=== PATIENT | female | born 1965 | race African-American/Black ===

== ENCOUNTER 2016-07-02 13:15 | Emergency (ER) | payer SELFPAY ==
[2016-07-02 13:21] VITALS: BP 149/98; BMI 24.0
[2016-07-02 13:52] LABS: BASOPHILS % (AUTO) 0.8 % (0.2-1.0); EOSINOPHILS # (AUTO) 0.1 x10^3/uL (0.0-0.2); EOSINOPHILS % (AUTO) 1.1 % (0.9-2.9); HEMATOCRIT 38.9 % (36.0-47.0); HEMOGLOBIN 12.8 g/dL (12.0-16.0); LYMPHOCYTES # (AUTO) 1.4 X10^3/uL (1.3-2.9); MEAN CORPUSCULAR HEMOGLOBIN 30.8 pg (27.0-34.0); MEAN CORPUSCULAR HGB CONC 32.9 g/dL (33.0-35.0); MEAN CORPUSCULAR VOLUME 93.5 fL (80.0-100.0); MEAN PLATELET VOLUME 8.9 fL (7.4-11.0); MONOCYTES # (AUTO) 0.6 x10^3/uL (0.3-0.8); MONOCYTES % (AUTO) 11.5 % (0.0-13.0); NEUTROPHILS # (AUTO) 2.9 x10^3/uL (2.2-4.8); NEUTROPHILS % (AUTO) 57.6 % (42.0-75.0); PLATELET COUNT 168 X10^3/uL (150.0-450.0); RED BLOOD COUNT 4.16 X10^6/uL (3.5-5.4); RED CELL DISTRIBUTION WIDTH 13.2 % (11.6-16.5)
--- NOTE | 2016-07-02 13:59 | DR.EXTPAIN ---
HPI - Time seen Time seen: 14:00 - PCP Primary Care Physician: BECKY LONDONO - HPI Comment HPI Comment: HAVE ARTHRITIS BUT DENIES HAVING GOUT. PATIENT SAID PAIN AND SWELLING INCREASING. - Complaint/Symptoms Chief Complaint Doctor Comments: LEFT ELBOW AND LEFT FOOT SWELLING AND PAIN TIMES ONE WEEK. Chief Complaint:: PT STATES " FOR THE PAST WEEK I HAVE BEEN HURTING IN MY LEFT ARM AND ITS SWELLING AND MY LEFT FOOT HAS A KNOT OF IT ,,,,, Self Treatment fo Chief Complaint: TYLENOL - Nurses notes reviewed Nurses Notes Review: Yes - Source History Provided: Patient - Mode of arrival Mode of Arrival: Ambulatory - Timing Onset of Chief Complaint: 06/25/16 - Context History of: None - Associated signs and symptoms Associated Signs and Symptoms: Pain, Swelling PMH - PMH Past Medical History: Yes Past Medical History: Hypertension Past Surgical History: No Surgical History: Cholecystectomy - Family History History of Family Medical Conditions: Yes Family Medical History: Cancer, Hypertension - Social History Does patient currently use any type of tobacco product: Yes Have you used tobacco products in the last 12 months: Yes Type of Tobacco Use: Cigarettes How many years tobacco product used: 15 Does any household member use tobacco: No Alcohol Use: Rarely Do you use any recreational Drugs:: No Lives With: Alone Lives Where: Home - infectious screening In the last 2 months have you had wt loss of >10#?: NO Have you had fever, night sweats or hemotysis?: No Have you traveled outside the country in the last 6 months?: No Isolation: Standard ROS - Review of Systems Constitutional: No Symptoms Reported. negative: Chills, Fever Eyes: No Symptoms Reported ENTM: No Symptoms Reported Respiratoy: No Symptoms Reported Cardiovascular: No Symptoms Reported Gastrointestinal/Abdominal: No Symptoms Reported Genitourinary: No Symptoms Reported Neurological: No Symptoms Reported Musculoskeletal: No Symptoms Reported, Left, Elbow, Foot Hematologic/Lymphatic: Easy Bruising Endocrine: No Symptoms Reported All Other Systems: Reviewed and Negative PE - Vital Signs Vitals: Temperature 98.3 F Pulse Rate 76 Respiratory Rate 20 Blood Pressure [Right Arm] 164/92 Blood Pressure 149/98 O2 Sat by Pulse Oximetry 100 - General Limitations: No Limitations General Appearance: Alert - Head Head Exam: Normal Inspection - Eyes Eye exam: Normal Appearance - ENT ENT Exam: Normal External Ear Exam - Neck Neck Exam: Normal Inspection - Chest Chest Inspection: Symmetric Chest Wall Rise - Respiratory Respiratory Exam: Normal Lung Sounds Bilat Respiratory Exam: Bilateral Clear to Auscultation - Cardiovascular Cardiovascular Exam: Regular Rate, Normal Rhythm, Normal Heart Sounds - Extremities Extremities Exam: Tenderness (LATERAL LT FOOT AND LT ELBOW SWOLLEN AND TENDER.) - Skin Skin Exam: Erythema MDM - Differential Diagnosis Differential Diagnosis: Sprain, Other (ARTHRITIS) Course - Treatment Treatment: SEE ORDERS - Education/Counseling Education/Counseling: Patient, Education Educated On: Diagnosis, Needs for Follow Up ROR - Labs Reviewed Laboratory Results Reviewed?: Yes Result Diagrams: 07/02/16 13:40 Laboratory: WBC 5.0 X10^3/uL (3.6-10.0) 07/02/16 13:40 RBC 4.16 X10^6/uL (3.5-5.4) 07/02/16 13:40 Hgb 12.8 g/dL (12.0-16.0) 07/02/16 13:40 Hct 38.9 % (36.0-47.0) 07/02/16 13:40 MCV 93.5 fL (80.0-100.0) 07/02/16 13:40 MCH 30.8 pg (27.0-34.0) 07/02/16 13:40 MCHC 32.9 g/dL (33.0-35.0) L 07/02/16 13:40 RDW 13.2 % (11.6-16.5) 07/02/16 13:40 Plt Count 168 X10^3/uL (150.0-450.0) 07/02/16 13:40 MPV 8.9 fL (7.4-11.0) 07/02/16 13:40 Neut % 57.6 % (42.0-75.0) 07/02/16 13:40 Lymph % 29.0 % (21.0-51.0) 07/02/16 13:40 Ashley % 11.5 % (0.0-13.0) 07/02/16 13:40 Eos % 1.1 % (0.9-2.9) 07/02/16 13:40 Baso % 0.8 % (0.2-1.0) 07/02/16 13:40 Neut # 2.9 x10^3/uL (2.2-4.8) 07/02/16 13:40 Lymph # 1.4 X10^3/uL (1.3-2.9) 07/02/16 13:40 Ashley # 0.6 x10^3/uL (0.3-0.8) 07/02/16 13:40 Eos # 0.1 x10^3/uL (0.0-0.2) 07/02/16 13:40 Baso # 0.0 X10^3/uL (0.0-0.1) 07/02/16 13:40 Absolute Nucleated RBC 0.0 /100WBC 07/02/16 13:40 Uric Acid 5.1 mg/dL (2.6-6.0) 07/02/16 13:40 - Diagnosis Discharge Problem: Arthritis Insect bite of foot, left Qualifiers: Encounter type: initial encounter Qualified Code(s): S90.862A - Insect bite ( nonvenomous), left foot, initial encounter - Discharge Plan Disposition: HOME, SELF-CARE Condition: Stable Prescriptions: Cephalexin [Keflex Cap 500 mg] 500 mg PO TID #30 cap Ibuprofen [MOTRIN TAB 600 MG *] 600 mg PO TID PRN #20 tab PRN Reason: Pain/Inflammation Tramadol HCl 50 mg PO Q8H PRN #12 tab PRN Reason: Pain - Follow ups/Referrals Follow ups/Referrals: EDEN PENA [Primary Care Provider] - 3 days - Instructions Instructions: Arthritis, [id number], Insect Bite
== END 2016-07-02 14:10 | disposition home or self-care (01) ==
LOC: ER 13:27
DX: S90.862A Insect bite (nonvenomous), left foot, initial encounter (principal); M19.90 Unspecified osteoarthritis, unspecified site; Y33.XXXA Other specified events, undetermined intent, initial encounter; Y92.9 Unspecified place or not applicable
CPT/HCPCS: 36415; 84550; 85025; 99282

== ENCOUNTER 2016-10-04 10:29 | Emergency (ER) | payer SELFPAY ==
[2016-10-04 10:35] VITALS: BP 146/94; BMI 24.0
--- NOTE | 2016-10-04 11:26 | DR.EXTPAIN ---
HPI - Time seen Time seen: 11:22 - PCP Primary Care Physician: BECKY LONDONO - Complaint/Symptoms Chief Complaint:: PT C/O PAIN TO HER LEFT ARM AND RIGHT LEG PT DENIES ANY INJURY AND PT C/O A PULLING SENSATION AND PAIN AT NIGHT.. Self Treatment fo Chief Complaint: TYLENOL.. - Nurses notes reviewed Nurses Notes Review: Yes - Source History Provided: Patient - Mode of arrival Mode of Arrival: Ambulatory - Timing Onset of Chief Complaint: 10/02/16 - Context History of: Arthritis - Associated signs and symptoms Associated Signs and Symptoms: Pain - Other history Other History: no trauma PMH - PMH Past Medical History: Yes Past Medical History: Hypertension Past Surgical History: Yes Surgical History: Cholecystectomy - Family History History of Family Medical Conditions: Yes Family Medical History: Cancer, Hypertension - Social History Does patient currently use any type of tobacco product: Yes Have you used tobacco products in the last 12 months: Yes Type of Tobacco Use: Cigarettes How many years tobacco product used: 10 Does any household member use tobacco: No Alcohol Use: None Do you use any recreational Drugs:: No Lives With: Alone Lives Where: Home - infectious screening In the last 2 months have you had wt loss of >10#?: NO Have you had fever, night sweats or hemotysis?: Yes Have you traveled outside the country in the last 6 months?: No Isolation: Standard ROS - Review of Systems Constitutional: No Symptoms Reported Eyes: No Symptoms Reported ENTM: No Symptoms Reported Respiratoy: No Symptoms Reported Cardiovascular: No Symptoms Reported Gastrointestinal/Abdominal: No Symptoms Reported Genitourinary: No Symptoms Reported Neurological: No Symptoms Reported Musculoskeletal: Joint Pain Integumentary: No Symptoms Reported Hematologic/Lymphatic: No Symptoms Reported Endocrine: No Symptoms Reported Psychiatric: No Symptoms Reported All Other Systems: Reviewed and Negative PE - Vital Signs Vitals: Temperature 98.4 F Pulse Rate 82 Respiratory Rate 18 Blood Pressure [Right Arm] 164/92 Blood Pressure 146/94 O2 Sat by Pulse Oximetry 100 - General Limitations: No Limitations General Appearance: Alert, In No Apparent Distress - Head Head Exam: Normal Inspection - Eyes Eye exam: Normal Appearance, EOMI. negative: Scleral Icterus, Conjunctival Injection - ENT ENT Exam: Normal Exam - Neck Neck Exam: Normal Inspection, Full ROM - Chest Chest Inspection: Normal Inspection - Respiratory Respiratory Exam: Normal Lung Sounds Bilat. negative: Accessory Muscle Use, Respiratory Distress Respiratory Exam: Bilateral Clear to Auscultation - Cardiovascular Cardiovascular Exam: Regular Rate - Abdominal Exam Abdominal Exam: Normal Inspection, Normal Bowel Sounds, Soft. negative: Distention, Tenderness, Guarding - Extremities Extremities Exam: Normal Inspection, Full ROM, Tenderness - Upper Extremities Shoulder Exam: Normal Inspection, Full ROM Arm Exam: Normal Inspection Elbow Exam: Normal Inspection, Tenderness Forearm Exam: Normal Inspection, Full ROM Hand Exam: Normal Inspection, Full ROM Neuromotor Exam: Normal Exam Neurosensory Exam: Normal Exam - Lower Extremities Hip/Pelvis Exam: Normal Inspection Upper Leg Exam: Normal Inspection Knee Exam: Normal Inspection Lower Leg Exam: Normal Inspection Ankle Exam: Normal Inspection Foot/Toe Exam: Normal Inspection Neurovascular/Tendon Exam: Normal Capillary Refill Gait Exam: Observed and Normal - Back Back Exam: Normal Inspection - Diagnosis Discharge Problem: Tendonitis of elbow, left, Tendonitis of elbow, left - Discharge Plan Condition: Stable Prescriptions: Indomethacin [Indocin Cap 25 mg] 25 mg PO TID #30 cap - Follow ups/Referrals Follow ups/Referrals: EDEN PENA [Primary Care Provider] - 3 days - Instructions
== END 2016-10-04 11:35 | disposition home or self-care (01) ==
LOC: ER 10:40
DX: M77.8 Other enthesopathies, not elsewhere classified (principal)
CPT/HCPCS: 99281; 99282

== ENCOUNTER 2020-12-12 12:45 | Inpatient (IN) ==
[2020-12-12 12:59] VITALS: BMI 20.5
--- NOTE | 2020-12-12 13:25 | DR.EYE ---
HPI Time Seen Time Seen by Provider: 12/12/20 13:25 PCP Primary Care Physician: BECKY HPI Comment HPI Comment: Persistent, worsening pain in the lt eye x 1 week as below; now with pain in the roof of her mouth which won't allow her to eat or sleep; no fe jodi, chills, n/v or problems swallowing; she is taking flonase and claritin daily without relief. Complaint Chief Complaint:: PT C/O LT NICOLE SWOLLEN AND PAINFUL. NOTED SCABBED AREA OVER LT EYE ALSO. PT STATES SHE CAME TO THE ED SEVERAL DAYS AGO WITH THE EYE PROBLEM, BUT THE PHYSICIAN TOLD HER THE LT EYE WAS OKAY. SHE DID HOWEVER HAVE A STI IN HER RT EYE. PT STATES THIS MORNING WHEN SHE WOKE UP SHE NOTICED HER LIPS ARE SWOLLEN AND THE ROOF OF HER MOUTH IS RAW. COVID-19 Coronavirus risk:travel/contact w/high risk person: No Has patient experienced Coronavirus symptoms: No Source History Provided: Patient Mode of arrival Mode of Arrival: Ambulatory Timing Onset of Chief Complaint: 12/05/20 PMH PMH Past Medical History: Yes Past Medical History: Arthritis and Hypertension Past Surgical History: Yes Surgical History: Cholecystectomy Family History History of Family Medical Conditions: Yes Family Medical History: Cancer and Hypertension Social History Does any household member use tobacco: No Alcohol Use: None Do you use any recreational Drugs:: No Lives With: Family Lives Where: Home Travel Risk Coronavirus risk:travel/contact w/high risk person: No Has patient experienced Coronavirus symptoms: No Infectious screening In the last 2 months have you had wt loss of >10#?: NO Have you had fever, night sweats or hemotysis?: No Have you traveled outside the country in the last 6 months?: No Isolation: Standard ROS Review of Systems Constitutional: No Symptoms Reported Eyes: See HPI ENTM: See HPI Respiratoy: No Symptoms Reported Cardiovascular: No Symptoms Reported Gastrointestinal/Abdominal: No Symptoms Reported Genitourinary: No Symptoms Reported Neurological: No Symptoms Reported Musculoskeletal: No Symptoms Reported Hematologic/Lymphatic: No Symptoms Reported Endocrine: No Symptoms Reported Psychiatric: No Symptoms Reported PE Vital Signs Vitals: Temperature 98.0 F Pulse Rate 95 Respiratory Rate 18 Blood Pressure [Right Arm] 147/62 Blood Pressure 142/102 O2 Sat by Pulse Oximetry 97 General Limitations: No Limitations and Other (crying) General Appearance: Alert and In No Apparent Distress Head Head Exam: Normal Inspection Eyes Eye exam: Periorbital Tenderness (swelling, redness and tenderness lt orbit with 2 cm crusted area at lateral crease) Eyelids: Erythema: Left, Stye: Right and Swelling Eyelid: Left Pupils: Regular, Round: Bilateral Sclera/Conjunctival: Tenderness: Left ENT ENT Exam: Other (large ulcerated, excoriated area hard palate) Neck Neck Exam: Normal Inspection Chest Chest Inspection: Normal Inspection Respiratory Respiratory Exam: Normal Lung Sounds Bilat Cardiovascular Cardiovascular Exam: Regular Rate and Normal Rhythm Abdominal Exam Abdominal Exam: Normal Inspection, Normal Bowel Sounds and Soft Extremities Extremities Exam: Normal Inspection Back Back Exam: Normal Inspection Neurologic Neurological Exam: Alert and Oriented X3 Psychiatric Psychiatric Exam: Normal Affect and Normal Mood MDM Additional Information Additional Information Obtained From: Old Records Differential Diagnosis Differential Diagnosis: Periorbital cellulitis COURSE Treatment Treatment: pt notified of lab and ct results and need for admission Consultation Call Returned: 15:54 (Dr Warren accepts admission.) Education/Counseling Education/Counseling: Patient Educated On: Treatment and Diagnosis ROR Labs Reviewed Laboratory Results Reviewed?: Yes Result Diagrams: 12/12/20 13:52 12/12/20 13:52 Laboratory: WBC 3.2 X10^3/uL (3.6-10.0) L 12/12/20 13:52 RBC 3.94 X10^6/uL (3.5-5.4) 12/12/20 13:52 Hgb 12.7 g/dL (12.0-16.0) 12/12/20 13:52 Hct 37.2 % (36.0-47.0) 12/12/20 13:52 MCV 94.2 fL (80.0-100.0) 12/12/20 13:52 MCH 32.3 pg (27.0-34.0) 12/12/20 13:52 MCHC 34.3 g/dL (33.0-35.0) 12/12/20 13:52 RDW 12.8 % (11.6-16.5) 12/12/20 13:52 Plt Count 133 X10^3/uL (150.0-450.0) L 12/12/20 13:52 Plt Count Comment Decreased (ADEQUATE) A 12/12/20 13:52 MPV 9.4 fL (7.4-11.0) 12/12/20 13:52 Neut % (Auto) 52.7 % (42.0-75.0) 12/12/20 13:52 Lymph % (Auto) 23.0 % (21.0-51.0) 12/12/20 13:52 [place] % (Auto) 23.6 % (0.0-13.0) H 12/12/20 13:52 Eos % (Auto) 0.1 % (0.9-2.9) L 12/12/20 13:52 Baso % (Auto) 0.6 % (0.2-1.0) 12/12/20 13:52 Neut # (Auto) 1.7 x10^3/uL (2.2-4.8) L 12/12/20 13:52 Lymph # (Auto) 0.7 X10^3/uL (1.3-2.9) L 12/12/20 13:52 [place] # (Auto) 0.8 x10^3/uL (0.3-0.8) 12/12/20 13:52 Eos # (Auto) 0.0 x10^3/uL (0.0-0.2) 12/12/20 13:52 Baso # (Auto) 0.0 X10^3/uL (0.0-0.1) 12/12/20 13:52 Absolute Nucleated RBC 0.1 /100WBC 12/12/20 13:52 Total Counted 50 12/12/20 13:52 Neutrophils % (Manual) 56 % (39-76) 12/12/20 13:52 Lymphocytes % (Manual) 26 % (13-43) 12/12/20 13:52 Monocytes % (Manual) 18 % (4-9) H 12/12/20 13:52 Plt Morphology Comment Normal (NORMAL) 12/12/20 13:52 RBC Morphology Normal (NORMAL) 12/12/20 13:52 Sodium 119 mmol/L (136-145) L* 12/12/20 13:52 Corrected Sodium TNP 12/12/20 13:52 Potassium 2.9 mmol/L (3.5-5.1) L* 12/12/20 13:52 Chloride 84 mmol/L (98-107) L 12/12/20 13:52 Carbon Dioxide 27.7 mmol/L (21-32) 12/12/20 13:52 BUN 2 mg/dL (7-18) L 12/12/20 13:52 Creatinine 0.76 mg/dL (0.55-1.02) 12/12/20 13:52 Est GFR (MDRD) Af Amer > 60 (>60) 12/12/20 13:52 Est GFR (MDRD) Non-Af > 60 (>60) 12/12/20 13:52 Glucose 97 mg/dL (65-99) 12/12/20 13:52 Calcium 8.1 mg/dL (8.5-10.1) L 12/12/20 13:52 Corrected Calcium 9.1 mg/dL (8.5-10.1) 12/12/20 13:52 Total Bilirubin 0.90 mg/dL (0.2-1.0) 12/12/20 13:52 AST 71 Units/L (15-37) H 12/12/20 13:52 ALT 49 Units/L (12-78) 12/12/20 13:52 Alkaline Phosphatase 113 Units/L (46-116) 12/12/20 13:52 Total Protein 7.3 g/dL (6.4-8.2) 12/12/20 13:52 Albumin 2.8 g/dL (3.4-5.0) L 12/12/20 13:52 Globulin 4.5 g/dL (2.5-4.5) 12/12/20 13:52 Albumin/Globulin Ratio 0.6 Ratio (1.1-2.1) L 12/12/20 13:52 SARS CoV-2 RNA Rapid SHANTE Negative (NEGATIVE) 12/12/20 15:12 XRAY XRAY Interpreted by: Radiologist X-ray Results: CT facial: Mild right-sided periorbital/preseptal soft tissue edema compatible with cellulitis with no acute radiological complications of invasive orbital disease or periorbital abscess formation. Multiple dental caries. Opioid Opioid Risk Tool Age (Abran box if 16-45): No History of Preadolescent Sexual Abuse: No Total: 0 Total Score Risk Category: Low Risk Copyright: Camilo COLE predicting aberrant behaviors Diagnosis Discharge Problem: Acute hyponatremia, Acute hypokalemia, Cellulitis of left orbit Instructions Forms: [facility] Patient [place] Social Distancing
[2020-12-12] MEDS ORDERED: NORCO 5/325 MG TAB PO ONE (13:42)
[2020-12-12] MEDS ORDERED: NORCO 5/325 MG TAB ONE (13:50)
[2020-12-12 14:10] LABS: ALANINE AMINOTRANSFERASE 49 Units/L (12-78); ALBUMIN 2.8 g/dL (3.4-5.0); ALKALINE PHOSPHATASE 113 Units/L (46-116); ASPARTATE AMINO TRANSFERASE 71 Units/L (15-37); BASOPHILS % (AUTO) 0.6 % (0.2-1.0); BLOOD UREA NITROGEN 2 mg/dL (7-18); CALCIUM 8.1 mg/dL (8.5-10.1); CARBON DIOXIDE 27.7 mmol/L (21-32); CHLORIDE 84 mmol/L (98-107); COR CA(FOR HYPOALB) 9.1 mg/dL (8.5-10.1); CREATININE 0.76 mg/dL (0.55-1.02); EOSINOPHILS % (AUTO) 0.1 % (0.9-2.9); HEMATOCRIT 37.2 % (36.0-47.0); HEMOGLOBIN 12.7 g/dL (12.0-16.0); LYMPHOCYTES # (AUTO) 0.7 X10^3/uL (1.3-2.9); MEAN CORPUSCULAR HEMOGLOBIN 32.3 pg (27.0-34.0); MEAN CORPUSCULAR HGB CONC 34.3 g/dL (33.0-35.0); MEAN CORPUSCULAR VOLUME 94.2 fL (80.0-100.0); MEAN PLATELET VOLUME 9.4 fL (7.4-11.0); MONOCYTES # (AUTO) 0.8 x10^3/uL (0.3-0.8); MONOCYTES % (AUTO) 23.6 % (0.0-13.0); NEUTROPHILS # (AUTO) 1.7 x10^3/uL (2.2-4.8); NEUTROPHILS % (AUTO) 52.7 % (42.0-75.0); PLATELET COUNT 133 X10^3/uL (150.0-450.0); RED BLOOD COUNT 3.94 X10^6/uL (3.5-5.4); RED CELL DISTRIBUTION WIDTH 12.8 % (11.6-16.5); TOTAL PROTEIN 7.3 g/dL (6.4-8.2); WHITE BLOOD COUNT 3.2 X10^3/uL (3.6-10.0); eGFR NON BLACK RACES > 60 (>60)
[2020-12-12 14:11] LABS: SODIUM 119 mmol/L (136-145)
[2020-12-12] MEDS ORDERED: VANCOMYCIN IV *PREMIX 1 G/200 ML BAG 1 G/200 ML PIGGYBACK IV ONE ×2 (14:14→14:44)
[2020-12-12] MEDS ORDERED: K-DUR TAB 20 MEQ PO STA (14:14)
[2020-12-12 14:19] LABS: PLATELET MORPHOLOGY COMMENT NORMAL (NORMAL)
[2020-12-12] MEDS ORDERED: NS 100 ML IV 100 ML ONE (14:27)
[2020-12-12] MEDS ORDERED: NS 1000 ML 1,000 ML ONE (14:43)
[2020-12-12] MEDS ORDERED: K-DUR TAB 20 MEQ PO ONE (14:49)
[2020-12-12] MEDS ORDERED: NS 1000 ML 1,000 ML IV SCH (15:00)
--- NOTE | 2020-12-12 15:32 | CT ---
HISTORYRight orbital cellulitisSTUDYCT maxillofacial with IV contrastCOMPARISONNo priorsContrast enhanced maxillofacial CT is performed in the axial plane and is reconstructed with multiplanar imaging series.Radiation dose reduction was achieved through individualized adjustment of kVP and/or mA, through adaptive statistical iterative reconstruction, and/or through automated tube current modulation.FINDINGSNo attenuation abnormalities of the brain parenchyma or extra-axial fluid collections are identified within the field of view. There is no abnormal parenchymal enhancement. Bilateral globes are intact. No retro bulbar inflammatory stranding or periorbital abscess is identified. There is avid enhancement of the submandibular, parotid and lacrimal glands. No deep or superficial fluid collections of the upper neck are identified. No pathologically enlarged or morphologically atypical lymph nodes are observed. The maxillofacial bones are intact. The sinuses and mastoid air cells are well aerated and are predominantly clear. Multiple fragmented T and dental caries are identified. Degenerative changes of the cervical spine are observed at C5-6 and C6-7 where there is endplate spondylosis, uncovertebral hypertrophy and degenerative disc space narrowing.There is very mild, asymmetric preseptal edema on the right-side.IMPRESSIONMild right-sided periorbital/preseptal soft tissue edema compatible with cellulitis with no acute radiological complications of invasive orbital disease or periorbital abscess formation.Multiple dental cariesElectronically signed by: ALEXY ALEJANDRO (Dec 12, 2020 15:30:21)
[2020-12-12] MEDS ORDERED: ZOFRAN INJ 4 MG VIAL IVP PRN (15:48)
[2020-12-12] MEDS ORDERED: PHARMACY CONSULT - VANCOMYCIN XX SCH (16:00)
[2020-12-12] MEDS: K-DUR TAB 20 MEQ PO SCH ×2 (17:24→20:00)
[2020-12-12] MEDS: NS 1000 ML 1,000 ML IV SCH (17:33)
[2020-12-12] MEDS: MAGNESIUM SULFATE 1 GRAM/100 mL PREMIX 1 GM/100 ML BAG IV PRN ×4 (19:30→23:35)
[2020-12-12] MEDS: NORCO 5/325 MG TAB PO PRN (20:00)
[2020-12-13] MEDS: NS 1000 ML 1,000 ML IV SCH ×5 (00:14→18:17)
[2020-12-13] MEDS: MAGNESIUM SULFATE 1 GRAM/100 mL PREMIX 1 GM/100 ML BAG IV PRN ×2 (00:55→02:18)
[2020-12-13] MEDS: APRESOLINE INJ 20 MG VIAL IVP PRN ×2 (01:15→20:30)
[2020-12-13 06:27] LABS: EOSINOPHILS % (AUTO) 0.2 % (0.9-2.9); HEMATOCRIT 38.2 % (36.0-47.0); LYMPHOCYTES # (AUTO) 0.7 X10^3/uL (1.3-2.9); LYMPHOCYTES % (AUTO) 25.3 % (21.0-51.0); MEAN CORPUSCULAR HEMOGLOBIN 32.1 pg (27.0-34.0); MEAN CORPUSCULAR VOLUME 94.5 fL (80.0-100.0); MEAN PLATELET VOLUME 9.9 fL (7.4-11.0); MONOCYTES # (AUTO) 0.8 x10^3/uL (0.3-0.8); MONOCYTES % (AUTO) 27.2 % (0.0-13.0); NEUTROPHILS # (AUTO) 1.3 x10^3/uL (2.2-4.8); NEUTROPHILS % (AUTO) 46.3 % (42.0-75.0); PLATELET COUNT 143 X10^3/uL (150.0-450.0); RED BLOOD COUNT 4.04 X10^6/uL (3.5-5.4); RED CELL DISTRIBUTION WIDTH 13.2 % (11.6-16.5); WHITE BLOOD COUNT 2.8 X10^3/uL (3.6-10.0)
[2020-12-13 06:53] LABS: ALANINE AMINOTRANSFERASE 45 Units/L (12-78); ALBUMIN 2.6 g/dL (3.4-5.0); ALKALINE PHOSPHATASE 106 Units/L (46-116); ASPARTATE AMINO TRANSFERASE 58 Units/L (15-37); BLOOD UREA NITROGEN 2 mg/dL (7-18); CALCIUM 8.2 mg/dL (8.5-10.1); CARBON DIOXIDE 22.2 mmol/L (21-32); CHLORIDE 95 mmol/L (98-107); COR CA(FOR HYPOALB) 9.3 mg/dL (8.5-10.1); CREATININE 0.64 mg/dL (0.55-1.02); SODIUM 128 mmol/L (136-145); eGFR NON BLACK RACES > 60 (>60)
[2020-12-13 07:06] LABS: PLATELET MORPHOLOGY COMMENT NORMAL (NORMAL)
[2020-12-13] MEDS: VANCOMYCIN IV *PREMIX 750 mg/150 ML BAG 750 MG/150 ML PIGGYBACK IV SCH ×2 (09:40→20:28)
[2020-12-13] MEDS: K-DUR TAB 20 MEQ PO SCH ×2 (10:11→20:29)
--- NOTE | 2020-12-13 11:25 | DR.H&P ---
H&P - History & Physical for Day of: H&P Date: 12/12/20 - Chief Complaint Chief Complaint: FACIAL SWELLING, MOUTH PAIN - History of Present Illness History of Present Illness: IS A 55 YEAR OLD PATIENT OF . SHE PRESENTED TO THE ER WITH COMPLAINTS OF LEFT EYE SWELLING AND PAIN, SWELLING OF THE LIPS, AND SORENESS OF THE ROOF OF HER MOUTH. THERE IS A SCABBED OVER ARE NOTED TO THE LEFT EYE. PATIENT REPORTS THAT SWELLING OF THE EYE STARTED ABOUT A WEEK AGO. SWELLING OF LIPS AND MOUTH PAIN STARTED ONE DAY PRIOR. SHE DENIES FEVER, CHILLS, N/V, OR PROBLEMS SWALLOWING. SHE HAS BEEN TAKING FLONASE AND CLARITIN DAILY WITHOUT RELIEF. HER PMH INCLUDES ARTHRITIS, HTN, AND CHOLECYSTECTOMY. ON ARRIVAL, HER VITALS WERE 98.0-95-20-97%-142/100. LABS WERE OBTAINED. ABNORMAL LAB VALUES INCLUDE THE FOLLOWING: WBC 3.2, PLT COUNT 133, SODIUM 119, POTASSIUM 2.9, CHLORIDE 84, BUN 2, CALCIUM 8.1, MAGNESIUM 1.1, AST 71, ALBUMIN 2.8. BLOOD CULTURES WERE SET UP. A FACIAL BONES CT WAS OBTAINED AND REVEALED: Mild right-sided periorbital/preseptal soft tissue edema compatible with cellulitis with no acute radiological complications of invasive orbital disease or periorbital abscess formation. Multiple dental caries. IN THE ER, SHE WAS GIVEN NORCO 5/325MG X 1 DOSE, K-DUR 40MEQ PO X 1 DOSE, VANCOMYCIN 1G IV X 1 DOSE. SHE WAS ADMITTED TO THE HOSPITAL FOR FURTHER EVALUATION AND TREATMENT OF LEFT PERIORBITAL CELLULITIS AND HYPONATREMIA. SHE WAS STARTED ON NORMAL SALINE AT 100 ML/HR, VANCOMYCIN 750MG IV Q12H, ZOSYN 3.375G IV TID, SOLU-MEDROL 40MG IV Q8H, SINGULAIR 10MG PO HS, K-DUR 20MEQ PO BID, ZOFRAN 4MG IV Q8H PRN, NORCO 5/325MG PO Q6H PRN, HYDRALAZINE 10MG IV Q6H PRN, BENADRYL 25MG PO BID. WE WILL REVIEW HER HOME MEDICATIONS ONCE THEY HAVE BEEN CONFIRMED. OTHERWISE, WE PLAN TO FOLLOW UP WITH AM LABS AND CONTINUE TO MONITOR. TIME SPENT ON CLINICAL ASSESSMENT, REVIEWING LABS AND IMAGING, DECISION MAKING, AND DOCUMENTATION GREATER THAN 75 MINUTES. - Past Medical History Past Medical History: Hypertension, Arthritis - Past Surgical History Surgical History: Cholecystectomy - Family History Family Medical History: Diabetes Mellitus, Cancer, [place], Hypertension - Social History Does patient currently use any type of tobacco product: Yes Have you used tobacco products in the last 12 months: Yes Type of Tobacco Use: Cigarettes Does any household member use tobacco: Yes Alcohol Use: Occasionally Drug Use: None - Medications Home Medications: No Known Drug Allergies Allergy (Verified 09/16/20 11:24) - Review of Systems Constitutional: See HPI. denies: Fever, Chills Eyes: See HPI, Eyelid Inflammation, Redness ENT: See HPI, Mouth Pain (LARGE ULCERATED, EXCORIATED ROOF OF MOUTH ) Respiratory: No Symptoms Reported Cardiovascular: No Symptoms Reported, Edema Gastrointestinal: No Symptoms Reported Genitourinary: No Symptoms Reported Musculoskeletal: No Symptoms Reported Skin: See HPI Neurological: No Symptoms Reported - Physical Exam Vital Signs: Temperature 98.6 F Pulse Rate [Left Brachial] 78 Pulse Rate 95 Respiratory Rate 20 Blood Pressure [Left Arm] 148/87 Blood Pressure [Right Arm] 177/110 Blood Pressure 142/102 O2 Sat by Pulse Oximetry 100 Oriented: Normal Eyes: Redness (PERIORBITAL TENDERNESS, SWELLING OF LEFT EYE WITH SCAB AT CREASE) Ear: Normal Nose: Normal Throat: Red (ULCERATIONS TO ROOF OF MOUTH ) Respiratory: Diminished Throughout Cardiovascular: Normal : Normal Auscultation: Bowel Sounds: Normal Palpation: Normal Tenderness: Normal Skin: Normal Musculoskeletal: Normal Psychiatric: Normal Mood Description: Calm Affect: Normal Speech Pattern: Clear - Assessment/Plan (1) Cellulitis of left orbit Status: Acute Plan: ADMIT, NORMAL SALINE AT 100 ML/HR, VANCOMYCIN 750MG IV Q12H, ZOSYN 3.375G IV TID, SOLU-MEDROL 40MG IV Q8H, SINGULAIR 10MG PO HS, K-DUR 20MEQ PO BID, ZOFRAN 4MG IV Q8H PRN, NORCO 5/325MG PO Q6H PRN, HYDRALAZINE 10MG IV Q6H PRN, BENADRYL 25MG PO BID. (2) Acute hypokalemia Status: Acute (3) Acute hyponatremia Status: Acute - Allergies Allergies/Adverse Reactions: Allergies Allergy/AdvReac Type Severity Reaction Status Date / Time No Known Drug Allergies Allergy Verified 09/16/20 11:24
[2020-12-13] MEDS ORDERED: ZOSYN VIAL 3.375 GRAMS IV ONE (12:40)
[2020-12-13] MEDS: ZOSYN VIAL 3.375 GRAMS 3.375 G in NS 50 ML IV + SPIKE MINIBAG* 50 ML IV SCH ×3 (12:49→21:17)
[2020-12-13] MEDS: SOLU-Medrol 40 MG VIAL IVP SCH ×3 (12:49→21:17)
[2020-12-13] MEDS: BENADRYL CAP/TAB 25 MG PO SCH ×2 (12:49→20:29)
[2020-12-13] MEDS ORDERED: NYSTATIN SUSP ONE (17:52)
[2020-12-13] MEDS ORDERED: LEVSIN/MAALOX/LIDOC VISC ONE (17:52)
[2020-12-13] MEDS: MAGIC MOUTHWASH MT PRN ×2 (18:05→23:00)
[2020-12-13] MEDS: NYSTATIN SUSP PO SCH ×2 (18:05→20:28)
[2020-12-13] MEDS ORDERED: TOPROL XL PO ONE (18:24)
[2020-12-13] MEDS: TOPROL XL PO SCH (18:27)
[2020-12-13] MEDS: SINGULAIR TAB 10 MG PO SCH (20:30)
[2020-12-14] MEDS: NS 1000 ML 1,000 ML IV SCH ×3 (01:37→15:08)
[2020-12-14] MEDS: APRESOLINE INJ 20 MG VIAL IVP PRN ×2 (04:38→12:33)
[2020-12-14] MEDS: SOLU-Medrol 40 MG VIAL IVP SCH (05:13)
[2020-12-14] MEDS: ZOSYN VIAL 3.375 GRAMS 3.375 G in NS 50 ML IV + SPIKE MINIBAG* 50 ML IV SCH ×3 (05:14→21:25)
[2020-12-14 06:30] LABS: BASOPHILS % (AUTO) 0.3 % (0.2-1.0); HEMATOCRIT 33.7 % (36.0-47.0); HEMOGLOBIN 11.4 g/dL (12.0-16.0); LYMPHOCYTES # (AUTO) 0.5 X10^3/uL (1.3-2.9); MEAN CORPUSCULAR HEMOGLOBIN 32.4 pg (27.0-34.0); MEAN CORPUSCULAR HGB CONC 33.7 g/dL (33.0-35.0); MEAN PLATELET VOLUME 10.1 fL (7.4-11.0); MONOCYTES # (AUTO) 0.3 x10^3/uL (0.3-0.8); NEUTROPHILS # (AUTO) 1.9 x10^3/uL (2.2-4.8); NEUTROPHILS % (AUTO) 70.7 % (42.0-75.0); PLATELET COUNT 137 X10^3/uL (150.0-450.0); RED BLOOD COUNT 3.51 X10^6/uL (3.5-5.4); RED CELL DISTRIBUTION WIDTH 13.2 % (11.6-16.5); WHITE BLOOD COUNT 2.6 X10^3/uL (3.6-10.0)
[2020-12-14 06:39] LABS: ALANINE AMINOTRANSFERASE 34 Units/L (12-78); ALBUMIN 2.4 g/dL (3.4-5.0); ALKALINE PHOSPHATASE 90 Units/L (46-116); ASPARTATE AMINO TRANSFERASE 31 Units/L (15-37); BLOOD UREA NITROGEN 3 mg/dL (7-18); CALCIUM 8.2 mg/dL (8.5-10.1); CARBON DIOXIDE 18.9 mmol/L (21-32); CHLORIDE 96 mmol/L (98-107); COR CA(FOR HYPOALB) 9.5 mg/dL (8.5-10.1); COR NA(FOR HYPERGLY) 130 mmol/L (136-145); CREATININE 0.88 mg/dL (0.55-1.02); MAGNESIUM 1.6 mg/dL (1.7-2.9); SODIUM 128 mmol/L (136-145); TOTAL PROTEIN 6.5 g/dL (6.4-8.2); eGFR NON BLACK RACES > 60 (>60)
[2020-12-14 07:05] LABS: GIANT PLATELET RARE; PLATELET MORPHOLOGY COMMENT ABNORMAL (NORMAL)
[2020-12-14] MEDS: NORCO 5/325 MG TAB PO PRN (07:38)
[2020-12-14] MEDS ORDERED: TOPROL XL PO ONE (08:20)
[2020-12-14] MEDS: MAGNESIUM SULFATE 1 GRAM/100 mL PREMIX 4 G/400 ML BAG IV SCH ×4 (08:26→12:33)
[2020-12-14] MEDS: TOPROL XL PO SCH (08:27)
[2020-12-14] MEDS: K-DUR TAB 20 MEQ PO SCH ×2 (08:28→21:25)
[2020-12-14] MEDS: VANCOMYCIN IV *PREMIX 750 mg/150 ML BAG 750 MG/150 ML PIGGYBACK IV SCH ×2 (08:28→22:15)
[2020-12-14] MEDS: PREDNISONE TAB 20 MG PO SCH (08:28)
[2020-12-14] MEDS: NYSTATIN SUSP PO SCH ×4 (08:28→21:25)
[2020-12-14] MEDS: BENADRYL CAP/TAB 25 MG PO SCH ×2 (08:28→21:25)
[2020-12-14] MEDS: MAGNESIUM SULFATE 1 GRAM/100 mL PREMIX 1 GM/100 ML BAG IV PRN ×2 (12:33→18:01)
[2020-12-14 20:38] LABS: CREATININE 0.79 mg/dL (0.55-1.02); VANCOMYCIN,TROUGH 12.3 ug/mL (15-20)
[2020-12-14] MEDS: SINGULAIR TAB 10 MG PO SCH (21:25)
[2020-12-15] MEDS: NS 1000 ML 1,000 ML IV SCH ×6 (00:15→18:29)
[2020-12-15] MEDS: NORCO 5/325 MG TAB PO PRN (05:20)
[2020-12-15] MEDS: ZOSYN VIAL 3.375 GRAMS 3.375 G in NS 50 ML IV + SPIKE MINIBAG* 50 ML IV SCH ×3 (05:44→22:20)
[2020-12-15 06:38] LABS: BASOPHILS % (AUTO) 0.3 % (0.2-1.0); HEMOGLOBIN 11.3 g/dL (12.0-16.0); LYMPHOCYTES # (AUTO) 1.1 X10^3/uL (1.3-2.9); LYMPHOCYTES % (AUTO) 18.3 % (21.0-51.0); MEAN CORPUSCULAR HEMOGLOBIN 32.4 pg (27.0-34.0); MEAN CORPUSCULAR HGB CONC 33.4 g/dL (33.0-35.0); MEAN PLATELET VOLUME 9.7 fL (7.4-11.0); MONOCYTES # (AUTO) 0.8 x10^3/uL (0.3-0.8); MONOCYTES % (AUTO) 14.3 % (0.0-13.0); NEUTROPHILS # (AUTO) 3.9 x10^3/uL (2.2-4.8); NEUTROPHILS % (AUTO) 67.1 % (42.0-75.0); PLATELET COUNT 134 X10^3/uL (150.0-450.0); RED BLOOD COUNT 3.51 X10^6/uL (3.5-5.4); RED CELL DISTRIBUTION WIDTH 13.2 % (11.6-16.5); WHITE BLOOD COUNT 5.8 X10^3/uL (3.6-10.0)
[2020-12-15 06:55] LABS: ALANINE AMINOTRANSFERASE 30 Units/L (12-78); ALBUMIN 2.5 g/dL (3.4-5.0); ALKALINE PHOSPHATASE 78 Units/L (46-116); ASPARTATE AMINO TRANSFERASE 29 Units/L (15-37); BLOOD UREA NITROGEN 4 mg/dL (7-18); CALCIUM 8.3 mg/dL (8.5-10.1); CARBON DIOXIDE 22.3 mmol/L (21-32); CHLORIDE 97 mmol/L (98-107); COR CA(FOR HYPOALB) 9.5 mg/dL (8.5-10.1); CREATININE 0.75 mg/dL (0.55-1.02); MAGNESIUM 1.8 mg/dL (1.7-2.9); SODIUM 129 mmol/L (136-145); TOTAL PROTEIN 6.6 g/dL (6.4-8.2); eGFR NON BLACK RACES > 60 (>60)
[2020-12-15] MEDS ORDERED: TOPROL XL PO ONE (08:08)
[2020-12-15] MEDS: PREDNISONE TAB 20 MG PO SCH (08:24)
[2020-12-15] MEDS: BENADRYL CAP/TAB 25 MG PO SCH ×2 (08:24→21:09)
[2020-12-15] MEDS: NYSTATIN SUSP PO SCH ×4 (08:24→21:10)
[2020-12-15] MEDS: K-DUR TAB 20 MEQ PO SCH ×2 (08:24→21:09)
[2020-12-15] MEDS: TOPROL XL PO SCH (08:24)
[2020-12-15] MEDS: VANCOMYCIN IV *PREMIX 750 mg/150 ML BAG 750 MG/150 ML PIGGYBACK IV SCH ×2 (08:25→21:10)
[2020-12-15] MEDS: APRESOLINE INJ 20 MG VIAL IVP PRN ×2 (08:25→17:16)
[2020-12-15] MEDS ORDERED: COZAAR PO SCH (10:00)
[2020-12-15] MEDS: ZESTRIL TAB 40 MG PO SCH (12:02)
[2020-12-15] MEDS: MAGNESIUM SULFATE 1 GRAM/100 mL PREMIX 1 GM/100 ML BAG IV PRN ×2 (15:08→17:16)
[2020-12-15] MEDS: SINGULAIR TAB 10 MG PO SCH (21:10)
[2020-12-16] MEDS: NS 1000 ML 1,000 ML IV SCH ×2 (02:24→07:52)
[2020-12-16] MEDS: NORCO 5/325 MG TAB PO PRN (02:25)
[2020-12-16] MEDS: MAGIC MOUTHWASH MT PRN (02:35)
[2020-12-16] MEDS: ZOSYN VIAL 3.375 GRAMS 3.375 G in NS 50 ML IV + SPIKE MINIBAG* 50 ML IV SCH (05:03)
[2020-12-16 06:37] LABS: BASOPHILS % (AUTO) 0.3 % (0.2-1.0); HEMATOCRIT 34.2 % (36.0-47.0); HEMOGLOBIN 11.6 g/dL (12.0-16.0); LYMPHOCYTES # (AUTO) 1.3 X10^3/uL (1.3-2.9); LYMPHOCYTES % (AUTO) 22.8 % (21.0-51.0); MEAN CORPUSCULAR HEMOGLOBIN 32.3 pg (27.0-34.0); MEAN CORPUSCULAR HGB CONC 33.9 g/dL (33.0-35.0); MEAN CORPUSCULAR VOLUME 95.2 fL (80.0-100.0); MEAN PLATELET VOLUME 9.5 fL (7.4-11.0); MONOCYTES # (AUTO) 1.1 x10^3/uL (0.3-0.8); MONOCYTES % (AUTO) 18.5 % (0.0-13.0); NEUTROPHILS # (AUTO) 3.4 x10^3/uL (2.2-4.8); NEUTROPHILS % (AUTO) 58.4 % (42.0-75.0); PLATELET COUNT 141 X10^3/uL (150.0-450.0); RED BLOOD COUNT 3.59 X10^6/uL (3.5-5.4); RED CELL DISTRIBUTION WIDTH 12.9 % (11.6-16.5); WHITE BLOOD COUNT 5.8 X10^3/uL (3.6-10.0)
[2020-12-16 07:01] LABS: ALANINE AMINOTRANSFERASE 32 Units/L (12-78); ALBUMIN 2.5 g/dL (3.4-5.0); ALKALINE PHOSPHATASE 73 Units/L (46-116); ASPARTATE AMINO TRANSFERASE 30 Units/L (15-37); BLOOD UREA NITROGEN 7 mg/dL (7-18); CALCIUM 8.5 mg/dL (8.5-10.1); CARBON DIOXIDE 23.8 mmol/L (21-32); CHLORIDE 97 mmol/L (98-107); COR CA(FOR HYPOALB) 9.7 mg/dL (8.5-10.1); CREATININE 0.81 mg/dL (0.55-1.02); SODIUM 128 mmol/L (136-145); TOTAL PROTEIN 6.5 g/dL (6.4-8.2); eGFR NON BLACK RACES > 60 (>60)
[2020-12-16 07:52] VITALS: BP 198/95
[2020-12-16] MEDS ORDERED: TOPROL XL PO ONE (08:18)
[2020-12-16] MEDS: NYSTATIN SUSP PO SCH (08:27)
[2020-12-16] MEDS: BENADRYL CAP/TAB 25 MG PO SCH (08:27)
[2020-12-16] MEDS: TOPROL XL PO SCH (08:27)
[2020-12-16] MEDS: ZESTRIL TAB 40 MG PO SCH (08:28)
[2020-12-16] MEDS: VANCOMYCIN IV *PREMIX 750 mg/150 ML BAG 750 MG/150 ML PIGGYBACK IV SCH (08:28)
[2020-12-16] MEDS: PREDNISONE TAB 20 MG PO SCH (08:28)
[2020-12-16] MEDS: K-DUR TAB 20 MEQ PO SCH (08:28)
== END 2020-12-16 11:00 | disposition home or self-care (01) | DRG 603 ==
LOC: ER 12:55 → MED/SURG 15:47
PROVIDERS: ADMIT Internal Medicine; ATTEND Obstetrics & Gynecology Obstetrics
DX: E87.6 Hypokalemia; E87.1 Hypo-osmolality and hyponatremia; B08.4 Enteroviral vesicular stomatitis with exanthem; L03.213 Periorbital cellulitis; E83.42 Hypomagnesemia; I10 Essential (primary) hypertension; Z20.822 Contact with and (suspected) exposure to COVID-19

== ENCOUNTER 2021-02-04 10:34 | Inpatient (IN) ==
[2021-02-04 10:42] VITALS: BMI 20.5
[2021-02-04] MEDS ORDERED: NORCO 5/325 MG TAB PO ONE (11:03)
--- NOTE | 2021-02-04 11:03 | DR.EXTPAIN ---
HPI Time seen Time Seen by Provider: 02/04/21 11:01 PCP Primary Care Physician: BECKY HPI Comment HPI Comment: PATIENT WITH A HISTORY OF HYPERTENSION, OSTEOARTHRITIS, RAYNAUDS DISEASE, COMPLAINS OF PAIN, BLACK DISCOLORATION TO TIP OF LEFT MIDDLE FINGER FOR 1 MONTH. HAS NO RELIEF WHILE TAKING TORADOL. EVALUATED BY NEUROLOGIST YESTERDAY. DENIES FEVER, DRAINAGE FROM FINGER. Complaint/Symptoms Chief Complaint Doctor Comments: LEFT MIDDLE FINGER TIP PAIN Chief Complaint:: LEFT MIDDLE FINGER SORE/SWOLLEN, BLACK AREA AT FINGER TIP X 2 WEEKS, UNKNOWN INJURY Self Treatment fo Chief Complaint: "SHOT AT DR YESTERDAY" COVID-19 Coronavirus risk:travel/contact w/high risk person: No Has patient experienced Coronavirus symptoms: No Source History Provided: Patient Mode of arrival Mode of Arrival: Wheelchair Timing Onset of Chief Complaint: 01/21/21 Associated signs and symptoms Associated Signs and Symptoms: Pain PMH PMH Past Medical History: Yes Past Medical History: Arthritis and Hypertension Past Surgical History: Yes Surgical History: Cholecystectomy Family History History of Family Medical Conditions: No Family Medical History: Diabetes Mellitus and Hypertension Social History Alcohol Use: Occasionally Do you use any recreational Drugs:: No Travel Risk Coronavirus risk:travel/contact w/high risk person: No Has patient experienced Coronavirus symptoms: No Infectious screening Have you traveled outside the country in the last 6 months?: No Isolation: Standard ROS Review of Systems Constitutional: No Symptoms Reported Eyes: No Symptoms Reported ENTM: No Symptoms Reported Respiratoy: No Symptoms Reported Cardiovascular: No Symptoms Reported Gastrointestinal/Abdominal: No Symptoms Reported Genitourinary: No Symptoms Reported Neurological: No Symptoms Reported Musculoskeletal: Hand (PAIN, DISCOLORATION TO TIP OF LEFT MIDDLE FINGER) Integumentary: No Symptoms Reported Hematologic/Lymphatic: No Symptoms Reported Endocrine: No Symptoms Reported Psychiatric: No Symptoms Reported All Other Systems: Reviewed and Negative PE Vital Signs Vitals: Temperature 98.6 F Pulse Rate [Radial] 83 Pulse Rate 83 Respiratory Rate 18 Blood Pressure [Left Arm] 163/108 Blood Pressure [Right Arm] 177/110 Blood Pressure 137/91 O2 Sat by Pulse Oximetry 100 General General Appearance: In Distress (IN PAIN, MILD TO MODERATE DISTRESS) Head Head Exam: Normal Inspection and Atraumatic Eyes Eye exam: Normal Appearance, PERRL and EOMI ENT ENT Exam: Normal Exam Neck Neck Exam: Normal Inspection and Full ROM Chest Chest Inspection: Normal Inspection Respiratory Respiratory Exam: Normal Lung Sounds Bilat Respiratory Exam: Bilateral: Clear to Auscultation Cardiovascular Cardiovascular Exam: Regular Rate and Normal Rhythm Abdominal Exam Abdominal Exam: Normal Inspection and Normal Bowel Sounds Extremities Extremities Exam: Tenderness (LEFT MIDDLE FINGER, MID DISTAL PHALANGX TO TIP, BLACK DISCOLARATION DRY GANGRENE, MARKED TENDERNESS, FULL RANGE OF MOTION MCP PIP AND DIP JOINT, NO OPEN WOUNDS OR DRAINAGE) Upper Extremities Upper Ext. Vascular Exam: Radial Pulse (2+) Back Back Exam: Normal Inspection and Full ROM Neurological Neurological Exam: Oriented X3 and CN II-XII Intact Psychiatric Psychiatric Exam: Normal Affect and Normal Mood Skin Skin Exam: Warm MDM Differential Diagnosis Differential Diagnosis: Other (DRY GANGRENE LEFT MIDDLE FINGER TIP, DEHYDRATION, HYPONATREMIA, HYPOKALEMIA) COURSE Treatment Treatment: NORCO 5/325, 1 TAB ORALLY, IV NORMAL SALINE 1 LITER AT 250ML/HR, ZOFRAN 4MG IV, K-MARIAJOSE 10MEQ IVBP OVER 1 HOUR Reevaluation 1st: Unchanged Consultation Call Returned: 13:40 Consultation Comments: DISCUSSED WITH DR PENA FOR INPATIENT ADMIT ROR Labs Reviewed Laboratory Results Reviewed?: Yes Result Diagrams: 02/04/21 11:17 02/04/21 12:02 Laboratory: WBC 4.7 X10^3/uL (3.6-10.0) 02/04/21 11:17 RBC 4.52 X10^6/uL (3.5-5.4) 02/04/21 11:17 Hgb 14.6 g/dL (12.0-16.0) 02/04/21 11:17 Hct 41.1 % (36.0-47.0) 02/04/21 11:17 MCV 91.1 fL (80.0-100.0) 02/04/21 11:17 MCH 32.3 pg (27.0-34.0) 02/04/21 11:17 MCHC 35.4 g/dL (33.0-35.0) H 02/04/21 11:17 RDW 12.0 % (11.6-16.5) 02/04/21 11:17 Plt Count 172 X10^3/uL (150.0-450.0) 02/04/21 11:17 Plt Count Comment Adequate (ADEQUATE) 02/04/21 11:17 MPV 8.9 fL (7.4-11.0) 02/04/21 11:17 Neut % (Auto) 63.0 % (42.0-75.0) 02/04/21 11:17 Lymph % (Auto) 9.7 % (21.0-51.0) L 02/04/21 11:17 [place] % (Auto) 26.7 % (0.0-13.0) H 02/04/21 11:17 Eos % (Auto) 0.1 % (0.9-2.9) L 02/04/21 11:17 Baso % (Auto) 0.5 % (0.2-1.0) 02/04/21 11:17 Neut # (Auto) 2.9 x10^3/uL (2.2-4.8) 02/04/21 11:17 Lymph # (Auto) 0.5 X10^3/uL (1.3-2.9) L 02/04/21 11:17 [place] # (Auto) 1.2 x10^3/uL (0.3-0.8) H 02/04/21 11:17 Eos # (Auto) 0.0 x10^3/uL (0.0-0.2) 02/04/21 11:17 Baso # (Auto) 0.0 X10^3/uL (0.0-0.1) 02/04/21 11:17 Absolute Nucleated RBC 0.2 /100WBC 02/04/21 11:17 Total Counted 100 02/04/21 11:17 Neutrophils % (Manual) 71 % (39-76) 02/04/21 11:17 Lymphocytes % (Manual) 9 % (13-43) L 02/04/21 11:17 Monocytes % (Manual) 20 % (4-9) H 02/04/21 11:17 Plt Morphology Comment Normal (NORMAL) 02/04/21 11:17 RBC Morphology Normal (NORMAL) 02/04/21 11:17 Sodium 109 mmol/L (136-145) L* 02/04/21 12:02 Corrected Sodium TNP 02/04/21 12:02 Potassium 2.8 mmol/L (3.5-5.1) L* 02/04/21 12:02 Chloride 75 mmol/L (98-107) L* 02/04/21 12:02 Carbon Dioxide 28.0 mmol/L (21-32) 02/04/21 12:02 BUN 6 mg/dL (7-18) L 02/04/21 12:02 Creatinine 0.59 mg/dL (0.55-1.02) 02/04/21 12:02 Est GFR (MDRD) Af Amer > 60 (>60) 02/04/21 12:02 Est GFR (MDRD) Non-Af > 60 (>60) 02/04/21 12:02 Glucose 107 mg/dL (65-99) H 02/04/21 12:02 Lactic Acid 0.5 mmol/L (0.4-2.0) 02/04/21 12:02 Calcium 8.6 mg/dL (8.5-10.1) 02/04/21 12:02 Magnesium 1.6 mg/dL (1.7-2.9) L 02/04/21 12:02 Ethyl Alcohol mg/dL < 3 mg/dL (0-19.9) 02/04/21 12:02 SARS-CoV-2 (PCR) Negative (NEGATIVE) 02/04/21 12:29 XRAY XRAY Interpreted by: Radiologist (PORTABLE CHEST XRAY NO ACUTE PROCESS) EKG Rate: 70 [place]: Normal Rhythm: NSR (PROLONGED QT INTERVAL) Hypertrophy: LAE Opioid Opioid Risk Tool Age (Abran box if 16-45): No History of Preadolescent Sexual Abuse: No Total: 0 Total Score Risk Category: Low Risk Copyright: Camilo COLE predicting aberrant behaviors Diagnosis Discharge Problem: Electrolyte imbalance, Acute hyponatremia, Acute hypokalemia
[2021-02-04] MEDS ORDERED: NORCO 5/325 MG TAB ONE (11:06)
[2021-02-04 11:36] LABS: BASOPHILS % (AUTO) 0.5 % (0.2-1.0); EOSINOPHILS % (AUTO) 0.1 % (0.9-2.9); HEMATOCRIT 41.1 % (36.0-47.0); HEMOGLOBIN 14.6 g/dL (12.0-16.0); LYMPHOCYTES # (AUTO) 0.5 X10^3/uL (1.3-2.9); LYMPHOCYTES % (AUTO) 9.7 % (21.0-51.0); MEAN CORPUSCULAR HEMOGLOBIN 32.3 pg (27.0-34.0); MEAN CORPUSCULAR HGB CONC 35.4 g/dL (33.0-35.0); MEAN CORPUSCULAR VOLUME 91.1 fL (80.0-100.0); MEAN PLATELET VOLUME 8.9 fL (7.4-11.0); MONOCYTES # (AUTO) 1.2 x10^3/uL (0.3-0.8); MONOCYTES % (AUTO) 26.7 % (0.0-13.0); NEUTROPHILS # (AUTO) 2.9 x10^3/uL (2.2-4.8); PLATELET COUNT 172 X10^3/uL (150.0-450.0); RED BLOOD COUNT 4.52 X10^6/uL (3.5-5.4); WHITE BLOOD COUNT 4.7 X10^3/uL (3.6-10.0)
[2021-02-04 11:50] LABS: BLOOD UREA NITROGEN 6 mg/dL (7-18); eGFR NON BLACK RACES > 60 (>60)
[2021-02-04 12:16] LABS: CALCIUM 8.6 mg/dL (8.5-10.1); CREATININE 0.59 mg/dL (0.55-1.02)
[2021-02-04 12:19] LABS: CHLORIDE 75 mmol/L (98-107); SODIUM 109 mmol/L (136-145)
[2021-02-04 12:23] LABS: PLATELET MORPHOLOGY COMMENT NORMAL (NORMAL)
[2021-02-04] MEDS ORDERED: K-RIDER 10 MEQ/NS 100 ML 10 MEQ/100 ML BAG IV ONE ×2 (12:28→12:38)
[2021-02-04] MEDS ORDERED: NS 1,000 ML IV 1,000 ML IV STA (12:28)
[2021-02-04] MEDS ORDERED: ZOFRAN INJ 4 MG VIAL ONE (12:37)
[2021-02-04] MEDS ORDERED: NS 1,000 ML IV 1,000 ML ONE (12:38)
[2021-02-04 12:45] LABS: BLOOD ALCOHOL < 3 mg/dL (0-19.9); MAGNESIUM 1.6 mg/dL (1.7-2.9)
[2021-02-04] MEDS: ZOFRAN INJ 4 MG VIAL IVP ONE ×2 (13:07→13:09)
[2021-02-04 13:08] LABS: LACTIC ACID 0.5 mmol/L (0.4-2.0)
--- NOTE | 2021-02-04 13:16 | RAD ---
HISTORYGANGRENE TIP OF LEFT MIDDLE FINGER Relevant Clinical InformationSTUDYHAND, LEFT three viewsCOMPARISONNoneFINDINGSNo evidence of acute fractures, there is edema of the 3rd and 4th finger, s no evidence of air to suggest an anaerobic infection. There is hyper trophic changes in the 2nd 3rd and 4 distal interphalangeal joints. The carpal bones demonstrate no abnormalities. No radiopaque foreign bodies.IMPRESSIONNo acute fractures. No air in the soft tissues.Electronically signed by: Grisel Barton (Feb 04, 2021 13:15:03)
[2021-02-04] MEDS ORDERED: K-RIDER 10 MEQ/NS 100 ML 10 MEQ/100 ML BAG IV PRN ×2 (14:08→19:20)
[2021-02-04] MEDS ORDERED: ZOFRAN INJ 4 MG VIAL IVP PRN (14:08)
[2021-02-04] MEDS ORDERED: BACITRACIN ZINC ONE (14:11)
[2021-02-04] MEDS: BACTROBAN TOPICAL OINT TOP SCH ×2 (14:17→21:31)
--- NOTE | 2021-02-04 14:39 | RAD ---
HISTORYCOUGHSTUDYCHEST, 1 VIEWCOMPARISONFebruary 2020TECHNIQUEChest x-ray single viewFINDINGSHeart size and mediastinal contours are normal. Lungs are clear as are the pleural spaces. No free air or pneumothorax. No acute bony abonormality.IMPRESSIONNo acute radiographic abnormalities of the chestElectronically signed by: ALEXY ALEJANDRO (Feb 04, 2021 14:37:53)
[2021-02-04] MEDS: NS 1,000 ML IV 1,000 ML IV SCH ×2 (14:51→21:32)
[2021-02-04 16:12] LABS: BILIRUBIN,URINE NEGATIVE (NEGATIVE); BLOOD/HEMOGLOBIN,URINE 1+ (NEGATIVE); GLUCOSE, URINE NEGATIVE (NEGATIVE); KETONES,URINE NEGATIVE (NEGATIVE); LEUKOCYTE ESTERASE ,URINE 3+ (NEGATIVE); NITRITES,URINE NEGATIVE (NEGATIVE); PROTEIN,URINE 1+ (NEGATIVE); UROBILINOGEN,URINE 1+ (NORMAL)
[2021-02-04 16:23] LABS: APPEARANCE,URINE SLIGHTLY HAZY (CLEAR); COLOR,URINE YELLOW (YELLOW); SQUAMOUS EPITHELIAL CELL,UR MODERATE /HPF (NEGATIVE)
[2021-02-04 16:24] LABS: BACTERIA,URINE TRACE /HPF (NEGATIVE); TRICHOMONAS,URINE MANY /HPF (NEGATIVE)
[2021-02-04] MEDS ORDERED: MICRO K EXTEN CAP 10 MEQ PO PRN (19:20)
[2021-02-04] MEDS ORDERED: POTASSIUM CHLORIDE LIQ 20 MEQ UDC PO PRN (19:20)
[2021-02-04] MEDS ORDERED: POTASSIUM CHL 60 MEQ/NS 0.45% 500 ML IV PRN (19:20)
[2021-02-04] MEDS ORDERED: POTASSIUM CHL 40 MEQ/NS 0.45% 500 ML IV PRN (19:20)
[2021-02-04] MEDS: MAGNESIUM SULFATE 1 GRAM/100 mL PREMIX 1 G/100 ML BAG IV PRN ×2 (19:53→21:40)
[2021-02-04] MEDS: KLOR-CON PO PRN (19:53)
[2021-02-05] MEDS: BACTROBAN TOPICAL OINT TOP SCH ×3 (06:03→21:13)
[2021-02-05] MEDS: NS 1,000 ML IV 1,000 ML IV SCH ×3 (06:04→21:13)
[2021-02-05 06:40] LABS: BLOOD UREA NITROGEN 5 mg/dL (7-18); CALCIUM 8.4 mg/dL (8.5-10.1); CARBON DIOXIDE 23.3 mmol/L (21-32); CHLORIDE 86 mmol/L (98-107); MAGNESIUM 2.4 mg/dL (1.7-2.9); eGFR NON BLACK RACES > 60 (>60)
[2021-02-05 06:43] LABS: SODIUM 117 mmol/L (136-145)
[2021-02-05] MEDS ORDERED: TOPROL XL PO ONE (08:02)
[2021-02-05] MEDS: NORVASC TAB 10 MG PO SCH (08:04)
[2021-02-05] MEDS: TOPROL XL PO SCH (08:05)
[2021-02-05] MEDS: ULTRAM PO PRN (08:05)
[2021-02-05] MEDS ORDERED: ZESTRIL TAB 40 MG PO SCH (09:00)
[2021-02-05] MEDS: K-DUR TAB 20 MEQ PO PRN (09:29)
[2021-02-05] MEDS: COZAAR PO SCH (09:29)
[2021-02-05] MEDS: DUKE'S Magic Mouthwash (nyst/dex/ben/doxyc) MT PRN (11:21)
[2021-02-05 11:24] LABS: RHEUMATOID FACTOR NEGATIVE (NEGATIVE)
[2021-02-06] MEDS: NS 1,000 ML IV 1,000 ML IV SCH ×6 (03:31→22:09)
[2021-02-06] MEDS: ULTRAM PO PRN ×3 (04:25→16:51)
[2021-02-06] MEDS: DUKE'S Magic Mouthwash (nyst/dex/ben/doxyc) MT PRN (04:25)
[2021-02-06] MEDS: BACTROBAN TOPICAL OINT TOP SCH ×3 (05:36→21:37)
[2021-02-06 06:37] LABS: BASOPHILS % (AUTO) 0.7 % (0.2-1.0); EOSINOPHILS % (AUTO) 0.2 % (0.9-2.9); HEMATOCRIT 36.2 % (36.0-47.0); HEMOGLOBIN 12.4 g/dL (12.0-16.0); LYMPHOCYTES # (AUTO) 0.7 X10^3/uL (1.3-2.9); LYMPHOCYTES % (AUTO) 23.8 % (21.0-51.0); MEAN CORPUSCULAR HEMOGLOBIN 31.8 pg (27.0-34.0); MEAN CORPUSCULAR HGB CONC 34.3 g/dL (33.0-35.0); MEAN CORPUSCULAR VOLUME 92.8 fL (80.0-100.0); MONOCYTES # (AUTO) 0.7 x10^3/uL (0.3-0.8); MONOCYTES % (AUTO) 24.7 % (0.0-13.0); NEUTROPHILS # (AUTO) 1.5 x10^3/uL (2.2-4.8); NEUTROPHILS % (AUTO) 50.6 % (42.0-75.0); PLATELET COUNT 182 X10^3/uL (150.0-450.0); WHITE BLOOD COUNT 2.9 X10^3/uL (3.6-10.0)
[2021-02-06 06:51] LABS: ALANINE AMINOTRANSFERASE 13 Units/L (12-78); ALBUMIN 2.6 g/dL (3.4-5.0); ALKALINE PHOSPHATASE 82 Units/L (46-116); ASPARTATE AMINO TRANSFERASE 18 Units/L (15-37); BLOOD UREA NITROGEN 5 mg/dL (7-18); CALCIUM 8.1 mg/dL (8.5-10.1); CARBON DIOXIDE 24.3 mmol/L (21-32); CHLORIDE 94 mmol/L (98-107); COR CA(FOR HYPOALB) 9.2 mg/dL (8.5-10.1); CREATININE 0.51 mg/dL (0.55-1.02); TOTAL PROTEIN 6.3 g/dL (6.4-8.2); eGFR NON BLACK RACES > 60 (>60)
[2021-02-06 06:52] LABS: SODIUM 125 mmol/L (136-145)
[2021-02-06 07:06] LABS: PLATELET MORPHOLOGY COMMENT NORMAL (NORMAL)
[2021-02-06 07:10] LABS: BAND NEUTROPHILS % 2 % (0-10)
[2021-02-06] MEDS ORDERED: TOPROL XL PO ONE (08:20)
[2021-02-06] MEDS: NORVASC TAB 10 MG PO SCH (08:48)
[2021-02-06] MEDS: TOPROL XL PO SCH (08:48)
[2021-02-06] MEDS: COZAAR PO SCH (08:50)
--- NOTE | 2021-02-06 10:55 | PCM.PROG ---
Progress Note - Progress Note for Day of Date of Exam: 02/06/21 - Subjective Subjective: IS A 55 YEAR OLD PATIENT OF . SHE WAS ADMITTED ON 02/04 FOR TREATMENT OF HYPONATREMIA AND HYPOKALEMIA. SHE HAS A PMH OF RAYNAUDS SYNDROME AND HYPERTENSION. SHE IS A SMOKER AND OCCASIONAL DRINKER. TODAY, SHE IS ALERT AND ORIENTED, SITTING UP IN BED ON MORNING ROUNDS. SHE REPORTS WEAKNESS, RIGHT HAND AND FINGER PAIN, AND ULCERS IN MOUTH AND TO THE LIPS. ON EXAMINATION, HEART IS REGULAR IN RATE AND RHYTHM. BILATERAL LUNGS CLEAR TO AUSCULTATION. ABDOMEN FLAT, SOFT, AND NON-TENDER WITH NORMAL BOWEL SOUNDS NOTED IN ALL QUADRANTS. THERE IS A HEALING ULCER TO THE TIP OF LEFT MIDDLE FINGER. SHE HAS MULTIPLE ULCERS TO THE MOUTH. HER VITALS THIS MORNING ARE: 98.2-62-18-100%-147 /80. LABS WERE OBTAINED. ABNORMAL LAB VALUES INCLUDE THE FOLLOWING: WBC 2.9, SODIUM 125, CHLORIDE 94, BUN 5, CREATININE 0.51, CALCIUM 8.1, TOTAL PROTEIN 6.3, ALBUMIN 2.6. SHE IS CURRENTLY RECEIVING NORMAL SALINE AT 125ML/HR, THE POTASSIUM AND MAGNESIUM PROTOCOLS, ULTRAM 50MG PO QID PRN, NORVASC 10MG PO DAILY, COZAAR 100MG PO DAILY, TORPROL 200MG PO DAILY, MUPIROCIN OINTMENT TID, NYSTATIN SUSPENSION QID, ZOFRAN 4MG IV Q8H PRN. WE WILL CONTINUE WITH CURRENT PLAN OF CARE TODAY. OTHERWISE, WE PLAN TO FOLLOW UP WITH AM LABS AND CONTINUE TO MONITOR. TIME SPENT ON CLINICAL ASSESSMENT, REVIEWING LABS AND IMAGING, DECISION MAKING, AND DOCUMENTATION GREATER THAN 45 MINUTES. - Past Medical Family Social History Past Med/Fam/Surg Hx: No changes since H&P Allergies: Allergies No Known Drug Allergies Allergy (Verified 01/31/21 10:54) - Review of Systems ROS: No change since H&P - Vital Signs and I&O's Vital Signs: Temperature 98.2 F Pulse Rate [Radial] 62 Pulse Rate 83 Respiratory Rate 18 Blood Pressure [Left Arm] 147/80 Blood Pressure [Right Arm] 177/110 Blood Pressure 137/91 O2 Sat by Pulse Oximetry 100 Intake and Output: Intake & Output 02/03/21 02/04/21 02/05/21 02/06/21 11:59 11:59 11:59 11:59 Intake Total 2776 / 4882 3747 / 5467 Balance 4898 / 4898 8738 / 5460 - Physical Exam Oriented: Normal Eyes: Normal Ear: Normal Nose: Normal Throat: Other (MULTIPLE ULCERS IN MOUTH ) Respiratory: Normal Cardiovascular: Normal : Normal Auscultation: Bowel Sounds: Normal Palpation: Normal Tenderness: Normal Skin: Other (HEALING ULCER TO TIP OF LEFT MIDDLE FINGER ) Musculoskeletal: Normal Psychiatric: Normal Mood Description: Calm Affect: Normal Speech Pattern: Clear, Appropriate - Laboratory and Diagnostics Result Diagrams: 02/06/21 05:18 02/06/21 05:18 Labs: 02/04/21 15:50 Urine,Random Urine Culture - Final Laboratory WBC 2.9 X10^3/uL (3.6-10.0) L 02/06/21 05:18 RBC 3.90 X10^6/uL (3.5-5.4) 02/06/21 05:18 Hgb 12.4 g/dL (12.0-16.0) D 02/06/21 05:18 Hct 36.2 % (36.0-47.0) 02/06/21 05:18 MCV 92.8 fL (80.0-100.0) 02/06/21 05:18 MCH 31.8 pg (27.0-34.0) 02/06/21 05:18 MCHC 34.3 g/dL (33.0-35.0) 02/06/21 05:18 RDW 12.0 % (11.6-16.5) 02/06/21 05:18 Plt Count 182 X10^3/uL (150.0-450.0) 02/06/21 05:18 Plt Count Comment Adequate (ADEQUATE) 02/06/21 05:18 MPV 9.0 fL (7.4-11.0) 02/06/21 05:18 Neut % (Auto) 50.6 % (42.0-75.0) 02/06/21 05:18 Lymph % (Auto) 23.8 % (21.0-51.0) 02/06/21 05:18 [place] % (Auto) 24.7 % (0.0-13.0) H 02/06/21 05:18 Eos % (Auto) 0.2 % (0.9-2.9) L 02/06/21 05:18 Baso % (Auto) 0.7 % (0.2-1.0) 02/06/21 05:18 Neut # (Auto) 1.5 x10^3/uL (2.2-4.8) L 02/06/21 05:18 Lymph # (Auto) 0.7 X10^3/uL (1.3-2.9) L 02/06/21 05:18 [place] # (Auto) 0.7 x10^3/uL (0.3-0.8) 02/06/21 05:18 Eos # (Auto) 0.0 x10^3/uL (0.0-0.2) 02/06/21 05:18 Baso # (Auto) 0.0 X10^3/uL (0.0-0.1) 02/06/21 05:18 Absolute Nucleated RBC 0.2 /100WBC 02/06/21 05:18 Total Counted 50 02/06/21 05:18 Neutrophils % (Manual) 42 % (39-76) 02/06/21 05:18 Band Neutrophils % 2 % (0-10) 02/06/21 05:18 Lymphocytes % (Manual) 30 % (13-43) 02/06/21 05:18 Monocytes % (Manual) 26 % (4-9) H 02/06/21 05:18 Plt Morphology Comment Normal (NORMAL) 02/06/21 05:18 RBC Morphology Normal (NORMAL) 02/06/21 05:18 Sodium 125 mmol/L (136-145) L* 02/06/21 05:18 Corrected Sodium TNP 02/06/21 05:18 Potassium 3.6 mmol/L (3.5-5.1) 02/06/21 05:18 Chloride 94 mmol/L (98-107) L 02/06/21 05:18 Carbon Dioxide 24.3 mmol/L (21-32) 02/06/21 05:18 BUN 5 mg/dL (7-18) L 02/06/21 05:18 Creatinine 0.51 mg/dL (0.55-1.02) L 02/06/21 05:18 Est GFR (MDRD) Af Amer > 60 (>60) 02/06/21 05:18 Est GFR (MDRD) Non-Af > 60 (>60) 02/06/21 05:18 Glucose 84 mg/dL (65-99) 02/06/21 05:18 Lactic Acid 0.5 mmol/L (0.4-2.0) 02/04/21 12:02 Calcium 8.1 mg/dL (8.5-10.1) L 02/06/21 05:18 Corrected Calcium 9.2 mg/dL (8.5-10.1) 02/06/21 05:18 Magnesium 2.4 mg/dL (1.7-2.9) 02/05/21 05:25 Total Bilirubin 0.40 mg/dL (0.2-1.0) 02/06/21 05:18 AST 18 Units/L (15-37) 02/06/21 05:18 ALT 13 Units/L (12-78) 02/06/21 05:18 Alkaline Phosphatase 82 Units/L (46-116) 02/06/21 05:18 Total Protein 6.3 g/dL (6.4-8.2) L 02/06/21 05:18 Albumin 2.6 g/dL (3.4-5.0) L 02/06/21 05:18 Globulin 3.7 g/dL (2.5-4.5) 02/06/21 05:18 Albumin/Globulin Ratio 0.7 Ratio (1.1-2.1) L 02/06/21 05:18 Specimen Type Random urine 02/04/21 15:50 Urine Color Yellow (YELLOW) 02/04/21 15:50 Urine Appearance Slightly hazy (CLEAR) 02/04/21 15:50 Urine pH 6.0 (5.0 - 8.0) 02/04/21 15:[address] 1.015 (1.000-1.030) 02/04/21 15:50 Urine Protein 1+ (NEGATIVE) 02/04/21 15:50 Urine Glucose (UA) Negative (NEGATIVE) 02/04/21 15:50 Urine Ketones Negative (NEGATIVE) 02/04/21 15:50 Urine Occult Blood 1+ (NEGATIVE) 02/04/21 15:50 Urine Nitrite Negative (NEGATIVE) 02/04/21 15:50 Urine Bilirubin Negative (NEGATIVE) 02/04/21 15:50 Urine Urobilinogen 1+ (NORMAL) 02/04/21 15:50 Ur Leukocyte Esterase 3+ (NEGATIVE) 02/04/21 15:50 Urine RBC 5-10 /HPF (0-3) A 02/04/21 15:50 Urine WBC 20-30 /HPF (0-5) A 02/04/21 15:50 Ur Squamous Epith Cells Moderate /HPF (NEGATIVE) 02/04/21 15:50 Urine Bacteria Trace /HPF (NEGATIVE) 02/04/21 15:50 Urine Trichomonas Many /HPF (NEGATIVE) 02/04/21 15:50 Ur Culture Indicated? Yes/culture set up 02/04/21 15:50 Ethyl Alcohol mg/dL < 3 mg/dL (0-19.9) 02/04/21 12:02 Cryoglobulin Cancelled 02/05/21 10:48 Rheumatoid Factor Negative (NEGATIVE) 02/05/21 10:48 SARS-CoV-2 (PCR) Negative (NEGATIVE) 02/04/21 12:29 - Plan (1) Acute hyponatremia Status: Acute (2) Acute hypokalemia Status: Acute (3) Electrolyte imbalance Status: Acute (4) Raynaud's disease Status: Acute Qualifiers: Raynaud?s-associated gangrene presence: with gangrene Qualified Code(s): I73.01 - Raynaud's syndrome with gangrene (5) Oral ulcer Status: Acute
[2021-02-06] MEDS: K-DUR TAB 20 MEQ PO PRN (14:26)
[2021-02-06] MEDS: NORCO 5/325 MG TAB PO PRN ×2 (15:38→21:37)
[2021-02-06] MEDS ORDERED: NITRO-BID OINT 2% Multi-Dose tube ONE (17:07)
[2021-02-06] MEDS: NITRO-BID OINT 2% Multi-Dose tube TD SCH (17:39)
[2021-02-06] MEDS: TORADOL 30 MG VIAL IVP SCH ×2 (17:45→23:05)
[2021-02-06] MEDS: NICOTINE PATCH TD SCH (17:48)
[2021-02-07] MEDS: NITRO-BID OINT 2% Multi-Dose tube TD SCH ×3 (00:45→17:14)
[2021-02-07] MEDS: TORADOL 30 MG VIAL IVP SCH ×4 (04:54→22:13)
[2021-02-07] MEDS: NS 1,000 ML IV 1,000 ML IV SCH ×4 (04:55→23:37)
[2021-02-07] MEDS: BACTROBAN TOPICAL OINT TOP SCH (05:00)
[2021-02-07 05:56] LABS: BASOPHILS % (AUTO) 0.8 % (0.2-1.0); EOSINOPHILS % (AUTO) 0.8 % (0.9-2.9); HEMATOCRIT 40.2 % (36.0-47.0); HEMOGLOBIN 13.7 g/dL (12.0-16.0); LYMPHOCYTES % (AUTO) 24.5 % (21.0-51.0); MEAN CORPUSCULAR HEMOGLOBIN 31.5 pg (27.0-34.0); MEAN CORPUSCULAR VOLUME 92.8 fL (80.0-100.0); MEAN PLATELET VOLUME 8.5 fL (7.4-11.0); MONOCYTES # (AUTO) 0.8 x10^3/uL (0.3-0.8); MONOCYTES % (AUTO) 21.5 % (0.0-13.0); NEUTROPHILS % (AUTO) 52.4 % (42.0-75.0); PLATELET COUNT 204 X10^3/uL (150.0-450.0); RED BLOOD COUNT 4.33 X10^6/uL (3.5-5.4); RED CELL DISTRIBUTION WIDTH 12.3 % (11.6-16.5); WHITE BLOOD COUNT 3.9 X10^3/uL (3.6-10.0)
[2021-02-07 06:11] LABS: ALANINE AMINOTRANSFERASE 17 Units/L (12-78); ALKALINE PHOSPHATASE 93 Units/L (46-116); ASPARTATE AMINO TRANSFERASE 23 Units/L (15-37); BLOOD UREA NITROGEN 2 mg/dL (7-18); CALCIUM 8.7 mg/dL (8.5-10.1); CARBON DIOXIDE 27.2 mmol/L (21-32); CHLORIDE 91 mmol/L (98-107); COR CA(FOR HYPOALB) 9.5 mg/dL (8.5-10.1); CREATININE 0.46 mg/dL (0.55-1.02); SODIUM 127 mmol/L (136-145); TOTAL PROTEIN 7.3 g/dL (6.4-8.2); eGFR NON BLACK RACES > 60 (>60)
[2021-02-07] MEDS: KLOR-CON PO PRN (06:37)
[2021-02-07 07:13] LABS: BAND NEUTROPHILS % 3 % (0-10); PLATELET MORPHOLOGY COMMENT NORMAL (NORMAL)
[2021-02-07] MEDS ORDERED: TOPROL XL PO ONE (07:51)
[2021-02-07] MEDS: ZOVIRAX TOP SCH ×3 (08:47→23:38)
[2021-02-07] MEDS: NORVASC TAB 10 MG PO SCH (08:50)
[2021-02-07] MEDS: COZAAR PO SCH (08:50)
[2021-02-07] MEDS: MAGNESIUM SULFATE 1 GRAM/100 mL PREMIX 1 G/100 ML BAG IV PRN ×4 (08:50→15:12)
[2021-02-07] MEDS: TOPROL XL PO SCH (08:51)
[2021-02-07] MEDS: NICOTINE PATCH TD SCH (08:51)
[2021-02-07] MEDS: NORCO 5/325 MG TAB PO PRN (17:14)
[2021-02-08] MEDS: NITRO-BID OINT 2% Multi-Dose tube TD SCH ×3 (00:16→17:36)
[2021-02-08] MEDS: TORADOL 30 MG VIAL IVP SCH ×4 (04:20→22:20)
[2021-02-08 06:15] LABS: BASOPHILS # (AUTO) 0.1 X10^3/uL (0.0-0.1); BASOPHILS % (AUTO) 1.3 % (0.2-1.0); EOSINOPHILS % (AUTO) 0.4 % (0.9-2.9); HEMOGLOBIN 13.4 g/dL (12.0-16.0); LYMPHOCYTES # (AUTO) 1.1 X10^3/uL (1.3-2.9); LYMPHOCYTES % (AUTO) 26.4 % (21.0-51.0); MEAN CORPUSCULAR HGB CONC 34.4 g/dL (33.0-35.0); MEAN PLATELET VOLUME 8.3 fL (7.4-11.0); MONOCYTES # (AUTO) 0.9 x10^3/uL (0.3-0.8); MONOCYTES % (AUTO) 21.6 % (0.0-13.0); NEUTROPHILS # (AUTO) 2.2 x10^3/uL (2.2-4.8); NEUTROPHILS % (AUTO) 50.3 % (42.0-75.0); PLATELET COUNT 244 X10^3/uL (150.0-450.0); RED BLOOD COUNT 4.19 X10^6/uL (3.5-5.4); RED CELL DISTRIBUTION WIDTH 12.3 % (11.6-16.5); WHITE BLOOD COUNT 4.3 X10^3/uL (3.6-10.0)
[2021-02-08 06:41] LABS: ALANINE AMINOTRANSFERASE 14 Units/L (12-78); ALKALINE PHOSPHATASE 93 Units/L (46-116); ASPARTATE AMINO TRANSFERASE 19 Units/L (15-37); BLOOD UREA NITROGEN 2 mg/dL (7-18); CALCIUM 8.7 mg/dL (8.5-10.1); CARBON DIOXIDE 28.5 mmol/L (21-32); CHLORIDE 91 mmol/L (98-107); COR CA(FOR HYPOALB) 9.5 mg/dL (8.5-10.1); COR NA(FOR HYPERGLY) 127 mmol/L (136-145); MAGNESIUM 1.9 mg/dL (1.7-2.9); SODIUM 127 mmol/L (136-145); TOTAL PROTEIN 7.5 g/dL (6.4-8.2); eGFR NON BLACK RACES > 60 (>60)
[2021-02-08] MEDS: NS 1,000 ML IV 1,000 ML IV SCH ×4 (06:53→22:20)
[2021-02-08 06:59] LABS: ANTI-NUCLEAR ANTIBODY TEST Detected (None Detected); ANTICARDIOLIPIN IGG < 10 GPL (<=14); ANTICARDIOLIPIN IGM 31 MPL (<=12); IMMUNOGLOBULIN M 177 mg/dL (35-263)
[2021-02-08 07:11] LABS: BAND NEUTROPHILS % 2 % (0-10); PLATELET MORPHOLOGY COMMENT NORMAL (NORMAL)
[2021-02-08] MEDS: NORCO 5/325 MG TAB PO PRN (07:11)
[2021-02-08] MEDS: ZOVIRAX TOP SCH ×2 (09:00→15:00)
[2021-02-08] MEDS ORDERED: AMBIEN PO PRN (09:02)
[2021-02-08] MEDS ORDERED: TOPROL XL PO ONE (09:34)
[2021-02-08] MEDS: NICOTINE PATCH TD SCH (09:38)
[2021-02-08] MEDS: TOPROL XL PO SCH (09:38)
[2021-02-08] MEDS: NORVASC TAB 10 MG PO SCH (09:38)
[2021-02-08] MEDS: ZESTRIL TAB 40 MG PO SCH (09:39)
[2021-02-08] MEDS: KLOR-CON PO PRN (13:00)
[2021-02-08] MEDS: NORCO 7.5/325 MG TAB PO PRN (13:02)
--- NOTE | 2021-02-08 19:23 | DR.CONSULT ---
CONSULT Consultation for Day of: Date: 02/08/21 Chief Complaint Chief Complaint: Ulcers of the mouth. Non-healing wound to the tip of the left middle finger Allergies Allergies Allergy/AdvReac Type Severity Reaction Status Date / Time No Known Drug Allergies Allergy Verified 01/31/21 10:54 History of Present Illness History of Present Illness: This patietn is a 55 year old female with a long history of severe tobacco abuse who presented complaining of pain in her mouth with ulcers and inability to eat. She was shown to be significantly hyponatremic and has been admitted for hyponatremia in the past. She has a non- healing wound to the tip of the left middle finger. He has had a diagnosis of Raynaud's syndrome in the past Past Medical History Past Medical History: Arthritis and Hypertension Past Surgical History Surgical History: Cholecystectomy Family History Family Medical History: Diabetes Mellitus and Hypertension Social History Does patient currently use any type of tobacco product: Yes Have you used tobacco products in the last 12 months: Yes Type of Tobacco Use: Cigarettes How many years tobacco product used: 30 Does any household member use tobacco: No Alcohol Use: Occasionally and DAILY Drug Use: None Medications Home Medications: No Known Drug Allergies Allergy (Verified 01/31/21 10:54) CONTINUE taking the following medications amlodipine 10 mg PO DAILY 02/04/21 [History] doxycycline hyclate 100 mg PO BID 02/04/21 [History] metoprolol succinate 200 mg PO DAILY 02/04/21 [History] mupirocin 1 applic TOPICAL TID 02/04/21 [History] prednisone 20 mg PO DAILY 02/04/21 [History] tramadol [Ultram] 50 mg PO QID PRN 02/04/21 [History] Review of Systems Constitutional: denies No Symptoms Reported, See HPI, Fever, Chills, Sweats, Weakness, Malaise and Other Eyes: denies No Symptoms Reported, See HPI, Pain, Vision Change, Conjunctivae Inflammation, Eyelid Inflammation, Redness and Other ENT: Mouth Pain (ulcers in her mouth) and Mouth Swelling Respiratory: No Symptoms Reported Cardiovascular: No Symptoms Reported Gastrointestinal: No Symptoms Reported Genitourinary: denies No Symptoms Reported, See HPI, Dysuria, Frequency, Incontinence, Hematuria, Retention and Other Musculoskeletal: No Symptoms Reported and Other (c/o swelling of hands ) Skin: Other (non- healing , crusting lesion over the distal phalanx of the left long finger, measuring 1.2x0.3 x0.1 cm ) Neurological: denies No Symptoms Reported, See HPI, Weakness, Numbness, Incoordination, Change in Speech, Confusion, Seizures and Other Physical Exam Vital Signs: Temperature 98.4 F Ez=145, Cl= 75, WBC=4.7 Pulse Rate [Radial] 72 Pulse Rate 83 Respiratory Rate 18 Blood Pressure [Left Arm] 166/86 Blood Pressure [Right Arm] 178/98 Blood Pressure 137/91 O2 Sat by Pulse Oximetry 94 Oriented: Normal, Time, Person and Place Eyes: Normal Ear: Normal Nose: Normal Throat: Other (ulcers in her mouth) Respiratory: Clear Throughout Cardiovascular: Normal : Normal Auscultation: Bowel Sounds: Normal Palpation: Normal Tenderness: Normal Skin: Other (wound left long finger as described above) Musculoskeletal: Normal Psychiatric: Normal Mood Description: Calm Affect: Normal Speech Pattern: Clear Plan (1) Acute hyponatremia: Status: Acute Plan: being corrected (2) Acute hypokalemia: Status: Acute Plan: being corrected (3) Electrolyte imbalance: Status: Acute (4) Raynaud's disease: Status: Acute Qualifiers: Raynaud?s-associated gangrene presence: with gangrene Qualified Code(s): I73.01 - Raynaud's syndrome with gangrene (5) Oral ulcer: Status: Acute (6) Buerger disease: Status: Acute Plan: Do not think she requires antibiotics. Patient counseled to give up all tobacco products. Agree with calcium channel blockers . F/U in my office after discharge. (7) Acute hyponatremia: Status: Acute (8) Hypertension: Status: Acute
[2021-02-09] MEDS ORDERED: APRESOLINE TAB 25 MG PO PRN (00:10)
[2021-02-09] MEDS ORDERED: APRESOLINE TAB 25 MG ONE (00:13)
[2021-02-09] MEDS: NITRO-BID OINT 2% Multi-Dose tube TD SCH ×3 (01:00→16:11)
[2021-02-09] MEDS: NORCO 7.5/325 MG TAB PO PRN (03:00)
[2021-02-09] MEDS: TORADOL 30 MG VIAL IVP SCH ×3 (05:08→17:22)
[2021-02-09] MEDS: NS 1,000 ML IV 1,000 ML IV SCH ×2 (05:08→05:39)
[2021-02-09 05:41] LABS: BASOPHILS % (AUTO) 0.8 % (0.2-1.0); EOSINOPHILS % (AUTO) 0.3 % (0.9-2.9); HEMATOCRIT 38.4 % (36.0-47.0); HEMOGLOBIN 13.1 g/dL (12.0-16.0); LYMPHOCYTES # (AUTO) 0.9 X10^3/uL (1.3-2.9); LYMPHOCYTES % (AUTO) 17.9 % (21.0-51.0); MEAN CORPUSCULAR HEMOGLOBIN 31.8 pg (27.0-34.0); MEAN CORPUSCULAR HGB CONC 34.3 g/dL (33.0-35.0); MEAN CORPUSCULAR VOLUME 92.9 fL (80.0-100.0); MEAN PLATELET VOLUME 8.7 fL (7.4-11.0); MONOCYTES # (AUTO) 0.8 x10^3/uL (0.3-0.8); MONOCYTES % (AUTO) 15.9 % (0.0-13.0); NEUTROPHILS # (AUTO) 3.2 x10^3/uL (2.2-4.8); NEUTROPHILS % (AUTO) 65.1 % (42.0-75.0); PLATELET COUNT 231 X10^3/uL (150.0-450.0); RED BLOOD COUNT 4.13 X10^6/uL (3.5-5.4); RED CELL DISTRIBUTION WIDTH 12.3 % (11.6-16.5); WHITE BLOOD COUNT 4.9 X10^3/uL (3.6-10.0)
[2021-02-09 05:52] LABS: ALANINE AMINOTRANSFERASE 14 Units/L (12-78); ALBUMIN 2.9 g/dL (3.4-5.0); ALKALINE PHOSPHATASE 89 Units/L (46-116); ASPARTATE AMINO TRANSFERASE 18 Units/L (15-37); BLOOD UREA NITROGEN 2 mg/dL (7-18); CALCIUM 8.6 mg/dL (8.5-10.1); CARBON DIOXIDE 22.6 mmol/L (21-32); CHLORIDE 93 mmol/L (98-107); COR CA(FOR HYPOALB) 9.5 mg/dL (8.5-10.1); CREATININE 0.43 mg/dL (0.55-1.02); SODIUM 127 mmol/L (136-145); TOTAL PROTEIN 7.2 g/dL (6.4-8.2); eGFR NON BLACK RACES > 60 (>60)
[2021-02-09] MEDS: KLOR-CON PO PRN (06:19)
[2021-02-09] MEDS: ZOVIRAX TOP SCH ×3 (07:13→15:00)
[2021-02-09] MEDS ORDERED: TOPROL XL PO ONE (08:33)
[2021-02-09] MEDS: NICOTINE PATCH TD SCH (08:38)
[2021-02-09] MEDS: TOPROL XL PO SCH (08:38)
[2021-02-09] MEDS: NORVASC TAB 10 MG PO SCH (08:39)
[2021-02-09] MEDS: ZESTRIL TAB 40 MG PO SCH (08:39)
[2021-02-09] MEDS ORDERED: SODIUM CHL HYPERTONIC ** 3% ** 500 ML IV NR (09:00)
[2021-02-09] MEDS ORDERED: LIBRIUM PO ONE (09:37)
[2021-02-09] MEDS ORDERED: LIBRIUM PO PRN (16:27)
[2021-02-09] MEDS: K-DUR TAB 20 MEQ PO PRN (18:28)
[2021-02-09 20:07] VITALS: BP 161/78
== END 2021-02-09 22:25 | disposition left against medical advice (07) | DRG 546 ==
LOC: ER 10:34 → MED/SURG 14:08
PROVIDERS: ADMIT Obstetrics & Gynecology Obstetrics; ATTEND Obstetrics & Gynecology Obstetrics
DX: E87.6 Hypokalemia; Z53.29 Procedure and treatment not carried out because of patient's decision for other reasons; Z20.822 Contact with and (suspected) exposure to COVID-19; I10 Essential (primary) hypertension; I73.01 Raynaud's syndrome with gangrene; E87.1 Hypo-osmolality and hyponatremia; M34.89 Other systemic sclerosis; E87.8 Other disorders of electrolyte and fluid balance, not elsewhere classified

== ENCOUNTER 2022-07-31 13:42 | Inpatient (IN) ==
--- NOTE | 2022-07-31 14:01 | DR.EXTPAIN ---
HPI Time seen Time Seen by Provider: 07/31/22 13:59 PCP Primary Care Physician: DR SCHULTZ Complaint/Symptoms Chief Complaint Doctor Comments: 57 female presents with worsening pain of her hands today, + h/o Buerger's disease. Admits to smoking two cigs yesterday. + burning pain of both hands/fingers. Radiates up forearms. + worse with moving. Nothing makes it better. Has been compliant with meds. Denies fever, URI symptoms, bowel or bladder complaints. Chief Complaint:: PT STATES ABOUT AN HOUR AGO SHE HAD A SUDDEN ONSET OF SEVERE PAIN INTO BILATERAL HANDS DESCRIBED CONSTANT BURNING PAIN. PT STATES THAT THE PAIN HAS BEEN BAD FOR SEVERAL WEEKS NOW BUT WAS FAIRLY WELL CONTROLLED WITH NORCO EVERY 4 HOURS BUT TODAY THE PAIN IS UNBEARABLE Self Treatment fo Chief Complaint: PT TOOK NORCO LAST AROUND 1330 Nurses notes reviewed Nurses Notes Review: Yes Source History Provided: Patient Mode of arrival Mode of Arrival: Ambulatory Timing Onset of Chief Complaint: 07/31/22 PMH PMH Past Medical History: Yes Past Medical History: Anxiety, Arthritis and Hypertension Past Medical History Comment: PVD, BUERGERS DISEASE, BECHETS DISEASE, RAYNAUDS Past Surgical History: Yes Surgical History: Cholecystectomy Family History History of Family Medical Conditions: Yes Family Medical History: Cancer and Hypertension Social History Does patient currently use any type of tobacco product: Yes Have you used tobacco products in the last 12 months: Yes Type of Tobacco Use: None Does any household member use tobacco: No Alcohol Use: Occasionally Do you use any recreational Drugs:: No Lives With: Family Lives Where: Home Infectious screening In the last 2 months have you had wt loss of >10#?: NO Have you had fever, night sweats or hemotysis?: No Have you traveled outside the country in the last 6 months?: No Isolation: Standard ROS Review of Systems Constitutional: No Symptoms Reported Eyes: No Symptoms Reported ENTM: No Symptoms Reported Respiratoy: No Symptoms Reported Cardiovascular: No Symptoms Reported Gastrointestinal/Abdominal: No Symptoms Reported Genitourinary: No Symptoms Reported Neurological: No Symptoms Reported Musculoskeletal: See HPI Integumentary: No Symptoms Reported All Other Systems: Reviewed and Negative PE Vital Signs Vitals: Temperature 97.8 F Pulse Rate 106 Respiratory Rate 24 Blood Pressure [Left Arm] 100/76 Blood Pressure [Right Arm] 178/98 Blood Pressure 141/84 O2 Sat by Pulse Oximetry 100 General General Appearance: Alert and In Distress Eyes Eye exam: PERRL and EOMI ENT ENT Exam: Mucous Membranes Moist Neck Neck Exam: Normal Inspection Respiratory Respiratory Exam: Normal Lung Sounds Bilat; negative Accessory Muscle Use or Respiratory Distress Cardiovascular Cardiovascular Exam: Regular Rate, Normal Rhythm and Normal Heart Sounds Abdominal Exam Abdominal Exam: Soft; negative Tenderness Neurological Neurological Exam: Alert, Oriented X3 and CN II-XII Intact Skin Skin Exam: Warm and Dry Other Exam Other Exam: Bilateral hands - + diffuse tenderness to palpation, mild swelling of fingers. + warm, good color, + good radial pulses. COURSE Treatment Treatment: 57 y/o female with bilateral hand pain, + h/o chronic Buerger's disease. Trying to quit, but had two cigs yesterday. W/u initiated. Pt given IV fluids, IV analgesia. 1500 - labs show markedly low potassium at 2.3, as well as low sodium at 127. Discussed with her attending, Dr Schultz, will admit to correct her electrolytes. ROR Labs Reviewed Laboratory Results Reviewed?: Yes Result Diagrams: 07/31/22 14:21 07/31/22 14: Laboratory: WBC 7.1 X10^3/uL (3.6-10.0) 07/31/22 14: RBC 4.96 X10^6/uL (3.5-5.4) 07/31/22 14: Hgb 15.3 g/dL (12.0-16.0) 07/31/22 14: Hct 45.0 % (36.0-47.0) 07/31/22 14: MCV 90.8 fL (80.0-100.0) 07/31/22 14: MCH 30.8 pg (27.0-34.0) 07/31/22 14: MCHC 33.9 g/dL (33.0-35.0) 07/31/22 14: RDW 13.6 % (11.6-16.5) 07/31/22 14: Plt Count 242 X10^3/uL (150.0-450.0) 07/31/22 14: MPV 8.2 fL (7.4-11.0) 07/31/22 14: Neut % (Auto) 72.1 % (42.0-75.0) 07/31/22 14: Lymph % (Auto) 13.2 % (21.0-51.0) L 07/31/22 14:21 [place] % (Auto) 13.6 % (0.0-13.0) H 07/31/22 14:21 Eos % (Auto) 0.9 % (0.9-2.9) 07/31/22 14: Baso % (Auto) 0.2 % (0.2-1.0) 07/31/22 14: Neut # (Auto) 5.1 x10^3/uL (2.2-4.8) H 07/31/22 14:21 Lymph # (Auto) 0.9 X10^3/uL (1.3-2.9) L 07/31/22 14:21 [place] # (Auto) 1.0 x10^3/uL (0.3-0.8) H 07/31/22 14: Eos # (Auto) 0.1 x10^3/uL (0.0-0.2) 07/31/22 14: Baso # (Auto) 0.0 X10^3/uL (0.0-0.1) 07/31/22 14: Absolute Nucleated RBC 0.0 /100WBC 07/31/22 14:21 Sodium 127 mmol/L (136-145) L 07/31/22 14:21 Corrected Sodium 128 mmol/L (136-145) L 07/31/22 14:21 Potassium 2.3 mmol/L (3.5-5.1) L* 07/31/22 14: Chloride 83 mmol/L (98-107) L 07/31/22 14:21 Carbon Dioxide 37.2 mmol/L (21-32) H 07/31/22 14:21 BUN 15 mg/dL (7-18) 07/31/22 14:21 Creatinine 0.96 mg/dL (0.55-1.02) 07/31/22 14:21 Est GFR (MDRD) Af Amer > 60 (>60) 07/31/22 14:21 Est GFR (MDRD) Non-Af > 60 (>60) 07/31/22 14:21 Glucose 128 mg/dL (65-99) H 07/31/22 14:21 Calcium 8.6 mg/dL (8.5-10.1) 07/31/22 14:21 Corrected Calcium 9.7 mg/dL (8.5-10.1) 07/31/22 14:21 Phosphorus 2.9 mg/dL (2.6-4.7) 07/31/22 14:21 Magnesium 1.6 mg/dL (2.0-2.9) L 07/31/22 14:21 Total Bilirubin 0.80 mg/dL (0.2-1.0) 07/31/22 14:21 AST 19 Units/L (15-37) 07/31/22 14:21 ALT < 6 Units/L (12-78) L 07/31/22 14:21 Alkaline Phosphatase 91 Units/L (46-116) 07/31/22 14:21 Total Protein 7.8 g/dL (6.4-8.2) 07/31/22 14:21 Albumin 2.6 g/dL (3.4-5.0) L 07/31/22 14:21 Globulin 5.2 g/dL (2.5-4.5) H 07/31/22 14:21 Albumin/Globulin Ratio 0.5 Ratio (1.1-2.1) L 07/31/22 14:21 Opioid Opioid Risk Tool Age (Abran box if 16-45): No History of Preadolescent Sexual Abuse: No Total: 0 Total Score Risk Category: Low Risk Copyright: Camilo COLE predicting aberrant behaviors Discharge Plan Diagnosis Discharge Problem: Acute hypokalemia, Acute hyponatremia, Buerger's disease Discharge Plan Patient Disposition: 09 ADMITTED INPATIENT Condition: Stable Orders to Discharge Patient Discharge Orders: Transfer (Routine); Ordered 07/31/22 Ordered By: Antonio Higuera
[2022-07-31] MEDS ORDERED: DILAUDID INJ IVP ONE ×2 (14:13→15:30)
[2022-07-31] MEDS ORDERED: NS 1,000 ML IV 1,000 ML IV ONE (14:13)
[2022-07-31] MEDS ORDERED: ZOFRAN INJ 4 MG VIAL IVP ONE (14:13)
[2022-07-31] MEDS ORDERED: NS 1,000 ML IV 1,000 ML ONE (14:17)
[2022-07-31] MEDS ORDERED: DILAUDID INJ ONE ×2 (14:17→15:32)
[2022-07-31] MEDS ORDERED: ZOFRAN INJ 4 MG VIAL ONE (14:17)
[2022-07-31 14:36] LABS: BASOPHILS % (AUTO) 0.2 % (0.2-1.0); EOSINOPHILS # (AUTO) 0.1 x10^3/uL (0.0-0.2); EOSINOPHILS % (AUTO) 0.9 % (0.9-2.9); HEMOGLOBIN 15.3 g/dL (12.0-16.0); LYMPHOCYTES # (AUTO) 0.9 X10^3/uL (1.3-2.9); LYMPHOCYTES % (AUTO) 13.2 % (21.0-51.0); MEAN CORPUSCULAR HEMOGLOBIN 30.8 pg (27.0-34.0); MEAN CORPUSCULAR HGB CONC 33.9 g/dL (33.0-35.0); MEAN CORPUSCULAR VOLUME 90.8 fL (80.0-100.0); MEAN PLATELET VOLUME 8.2 fL (7.4-11.0); MONOCYTES % (AUTO) 13.6 % (0.0-13.0); NEUTROPHILS # (AUTO) 5.1 x10^3/uL (2.2-4.8); NEUTROPHILS % (AUTO) 72.1 % (42.0-75.0); PLATELET COUNT 242 X10^3/uL (150.0-450.0); RED BLOOD COUNT 4.96 X10^6/uL (3.5-5.4); RED CELL DISTRIBUTION WIDTH 13.6 % (11.6-16.5); WHITE BLOOD COUNT 7.1 X10^3/uL (3.6-10.0)
[2022-07-31 14:46] LABS: ALANINE AMINOTRANSFERASE < 6 Units/L (12-78); ALBUMIN 2.6 g/dL (3.4-5.0); ALKALINE PHOSPHATASE 91 Units/L (46-116); ASPARTATE AMINO TRANSFERASE 19 Units/L (15-37); BLOOD UREA NITROGEN 15 mg/dL (7-18); CALCIUM 8.6 mg/dL (8.5-10.1); CARBON DIOXIDE 37.2 mmol/L (21-32); CHLORIDE 83 mmol/L (98-107); COR CA(FOR HYPOALB) 9.7 mg/dL (8.5-10.1); COR NA(FOR HYPERGLY) 128 mmol/L (136-145); CREATININE 0.96 mg/dL (0.55-1.02); GLUCOSE 128 mg/dL (65-99); SODIUM 127 mmol/L (136-145); TOTAL PROTEIN 7.8 g/dL (6.4-8.2); eGFR NON BLACK RACES > 60 (>60)
[2022-07-31 14:49] LABS: POTASSIUM 2.3 mmol/L (3.5-5.1)
[2022-07-31 15:49] LABS: MAGNESIUM 1.6 mg/dL (2.0-2.9); PHOSPHORUS 2.9 mg/dL (2.6-4.7)
[2022-07-31] MEDS ORDERED: KLOR-CON PO PRN ×2 (16:01→20:37)
[2022-07-31] MEDS ORDERED: K-DUR TAB 20 MEQ PO PRN (16:01)
[2022-07-31] MEDS ORDERED: POTASSIUM CHLORIDE LIQ 20 MEQ UDC PO PRN ×2 (16:01→20:37)
[2022-07-31] MEDS ORDERED: K-RIDER 10 MEQ/NS 100 ML 10 MEQ/100 ML BAG IV PRN ×2 (16:01→20:37)
[2022-07-31] MEDS ORDERED: MICRO K EXTEN CAP 10 MEQ PO PRN ×2 (16:01→20:37)
[2022-07-31] MEDS ORDERED: POTASSIUM CHL 40 MEQ/NS 0.45% 500 ML IV PRN ×2 (16:01→20:37)
[2022-07-31] MEDS ORDERED: POTASSIUM CHL 60 MEQ/NS 0.45% 500 ML IV PRN ×2 (16:01→20:37)
[2022-07-31] MEDS ORDERED: MAGNESIUM SULFATE 1 GRAM/100 mL PREMIX 1 G/100 ML BAG IV PRN (16:01)
[2022-07-31] MEDS: DILAUDID INJ IVP PRN ×2 (16:41→21:19)
[2022-07-31 16:45] VITALS: BMI 19.1
[2022-07-31] MEDS: D5 NS + KCL 20 MEQ/L 1,000 ML IV SCH ×2 (18:19→23:52)
[2022-07-31] MEDS: NORCO 10/325 TAB PO PRN (19:29)
[2022-07-31] MEDS ORDERED: D5 1/2 NS + KCL 20 MEQ/L 1,000 ML IV ONE (20:09)
[2022-07-31] MEDS: MAGNESIUM SULFATE 1 GRAM/100 mL PREMIX 1 G/100 ML BAG IV PRN ×2 (21:15→23:05)
[2022-07-31] MEDS: ZOFRAN INJ 4 MG VIAL IVP PRN (21:39)
[2022-07-31] MEDS: K-DUR TAB 20 MEQ PO PRN (21:40)
[2022-08-01] MEDS: K-DUR TAB 20 MEQ PO PRN ×3 (00:30→17:05)
[2022-08-01] MEDS: NORCO 10/325 TAB PO PRN ×4 (00:35→19:01)
[2022-08-01] MEDS: DILAUDID INJ IVP PRN ×5 (01:00→23:00)
[2022-08-01] MEDS ORDERED: D5 1/2 NS + KCL 20 MEQ/L 1,000 ML IV ONE (05:12)
[2022-08-01] MEDS: D5 NS + KCL 20 MEQ/L 1,000 ML IV SCH ×3 (05:20→17:00)
[2022-08-01 05:28] LABS: BASOPHILS # (AUTO) 0.1 X10^3/uL (0.0-0.1); BASOPHILS % (AUTO) 0.7 % (0.2-1.0); EOSINOPHILS # (AUTO) 0.1 x10^3/uL (0.0-0.2); EOSINOPHILS % (AUTO) 1.1 % (0.9-2.9); HEMATOCRIT 41.2 % (36.0-47.0); LYMPHOCYTES # (AUTO) 1.5 X10^3/uL (1.3-2.9); LYMPHOCYTES % (AUTO) 16.4 % (21.0-51.0); MEAN CORPUSCULAR HEMOGLOBIN 30.9 pg (27.0-34.0); MEAN CORPUSCULAR HGB CONC 33.8 g/dL (33.0-35.0); MEAN CORPUSCULAR VOLUME 91.2 fL (80.0-100.0); MEAN PLATELET VOLUME 8.8 fL (7.4-11.0); MONOCYTES # (AUTO) 1.2 x10^3/uL (0.3-0.8); MONOCYTES % (AUTO) 13.6 % (0.0-13.0); NEUTROPHILS # (AUTO) 6.2 x10^3/uL (2.2-4.8); NEUTROPHILS % (AUTO) 68.2 % (42.0-75.0); PLATELET COUNT 251 X10^3/uL (150.0-450.0); RED BLOOD COUNT 4.52 X10^6/uL (3.5-5.4)
[2022-08-01 05:45] LABS: ALANINE AMINOTRANSFERASE 6 Units/L (12-78); ALBUMIN 2.3 g/dL (3.4-5.0); ALKALINE PHOSPHATASE 79 Units/L (46-116); ASPARTATE AMINO TRANSFERASE 22 Units/L (15-37); BLOOD UREA NITROGEN 12 mg/dL (7-18); CALCIUM 8.2 mg/dL (8.5-10.1); CARBON DIOXIDE 33.6 mmol/L (21-32); CHLORIDE 91 mmol/L (98-107); COR CA(FOR HYPOALB) 9.6 mg/dL (8.5-10.1); CREATININE 0.88 mg/dL (0.55-1.02); GLUCOSE 97 mg/dL (65-99); MAGNESIUM 2.3 mg/dL (2.0-2.9); POTASSIUM 3.4 mmol/L (3.5-5.1); SODIUM 130 mmol/L (136-145); TOTAL PROTEIN 7.3 g/dL (6.4-8.2); eGFR NON BLACK RACES > 60 (>60)
[2022-08-01] MEDS ORDERED: TOPROL XL PO ONE (08:23)
[2022-08-01] MEDS: NORVASC TAB 10 MG PO SCH (08:45)
[2022-08-01] MEDS: TOPROL XL PO SCH (08:45)
[2022-08-01] MEDS: NICOTINE PATCH TD SCH (09:28)
--- NOTE | 2022-08-01 10:51 | DR.H&P ---
H&P History & Physical for Day of: H&P Date: 08/01/22 Chief Complaint Chief Complaint: Hand and finger pain. Allergies Allergies Allergy/AdvReac Type Severity Reaction Status Date / Time No Known Drug Allergies Allergy Unknown Verified 07/21/22 09:41 History of Present Illness History of Present Illness: This is a 57-year-old white female whom I am well acquainted with. She has a history of Buerger's disease since last year. I have been treating her with hydrocodone and encouraging her to stop smoking. She has been compliant with her hydrocodone but her insurance only allows her to get 1 week of medication at the time. She reports to have been taking it every 6 hours but is not controlling her pain at this time. Over the last few days the pain has become unbearable so she came to the emergency department Monday for help. She reports that her hands and fingers are burning and stinging and cannot get any relief. She was found to be hyponatremic and hypokalemic with a potassium of 2.5 in the emergency department. Because of her electrolyte imbalance and pain we elected to admit her to correct her electrolytes and get her pain under better control. Past Medical History Past Medical History: Anxiety, Arthritis and Hypertension Past Surgical History Surgical History: Cholecystectomy Additional Surgical History: Buerger's disease Family History Family Medical History: Diabetes Mellitus, Cancer, Coronary Artery Disease, Sudden Cardiac and Hypertension Social History Does patient currently use any type of tobacco product: Yes Have you used tobacco products in the last 12 months: Yes Type of Tobacco Use: Cigarettes Does any household member use tobacco: Yes Alcohol Use: DAILY Drug Use: Marijuana Medications Home Medications: No Known Drug Allergies Allergy (Unknown, Verified 07/21/22 09:41) Labs Result Diagrams: 08/01/22 04:30 08/01/22 09:10 Labs: Laboratory WBC 9.0 X10^3/uL (3.6-10.0) 08/01/22 04:30 RBC 4.52 X10^6/uL (3.5-5.4) 08/01/22 04:30 Hgb 14.0 g/dL (12.0-16.0) 08/01/22 04:30 Hct 41.2 % (36.0-47.0) 08/01/22 04:30 MCV 91.2 fL (80.0-100.0) 08/01/22 04:30 MCH 30.9 pg (27.0-34.0) 08/01/22 04:30 MCHC 33.8 g/dL (33.0-35.0) 08/01/22 04:30 RDW 14.0 % (11.6-16.5) 08/01/22 04:30 Plt Count 251 X10^3/uL (150.0-450.0) 08/01/22 04:30 MPV 8.8 fL (7.4-11.0) 08/01/22 04:30 Neut % (Auto) 68.2 % (42.0-75.0) 08/01/22 04:30 Lymph % (Auto) 16.4 % (21.0-51.0) L 08/01/22 04:30 [place] % (Auto) 13.6 % (0.0-13.0) H 08/01/22 04:30 Eos % (Auto) 1.1 % (0.9-2.9) 08/01/22 04:30 Baso % (Auto) 0.7 % (0.2-1.0) 08/01/22 04:30 Neut # (Auto) 6.2 x10^3/uL (2.2-4.8) H 08/01/22 04:30 Lymph # (Auto) 1.5 X10^3/uL (1.3-2.9) 08/01/22 04:30 [place] # (Auto) 1.2 x10^3/uL (0.3-0.8) H 08/01/22 04:30 Eos # (Auto) 0.1 x10^3/uL (0.0-0.2) 08/01/22 04:30 Baso # (Auto) 0.1 X10^3/uL (0.0-0.1) 08/01/22 04:30 Absolute Nucleated RBC 0.2 /100WBC 08/01/22 04:30 Sodium 130 mmol/L (136-145) L 08/01/22 04:30 Corrected Sodium TNP 08/01/22 04:30 Potassium 3.7 mmol/L (3.5-5.1) 08/01/22 09:10 Chloride 91 mmol/L (98-107) L 08/01/22 04:30 Carbon Dioxide 33.6 mmol/L (21-32) H 08/01/22 04:30 BUN 12 mg/dL (7-18) 08/01/22 04:30 Creatinine 0.88 mg/dL (0.55-1.02) 08/01/22 04:30 Est GFR (MDRD) Af Amer > 60 (>60) 08/01/22 04:30 Est GFR (MDRD) Non-Af > 60 (>60) 08/01/22 04:30 Glucose 97 mg/dL (65-99) 08/01/22 04:30 Hemoglobin A1c 4.9 % 07/31/22 14:21 Calcium 8.2 mg/dL (8.5-10.1) L 08/01/22 04:30 Corrected Calcium 9.6 mg/dL (8.5-10.1) 08/01/22 04:30 Phosphorus 2.9 mg/dL (2.6-4.7) 07/31/22 14:21 Magnesium 2.3 mg/dL (2.0-2.9) 08/01/22 04:30 Total Bilirubin 0.50 mg/dL (0.2-1.0) 08/01/22 04:30 AST 22 Units/L (15-37) 08/01/22 04:30 ALT 6 Units/L (12-78) L 08/01/22 04:30 Alkaline Phosphatase 79 Units/L (46-116) 08/01/22 04:30 Total Protein 7.3 g/dL (6.4-8.2) 08/01/22 04:30 Albumin 2.3 g/dL (3.4-5.0) L 08/01/22 04:30 Globulin 5.0 g/dL (2.5-4.5) H 08/01/22 04:30 Albumin/Globulin Ratio 0.5 Ratio (1.1-2.1) L 08/01/22 04:30 Review of Systems Constitutional: No Symptoms Reported Eyes: No Symptoms Reported ENT: No Symptoms Reported Respiratory: No Symptoms Reported Cardiovascular: No Symptoms Reported Gastrointestinal: No Symptoms Reported Genitourinary: No Symptoms Reported Musculoskeletal: No Symptoms Reported Skin: No Symptoms Reported Neurological: No Symptoms Reported Physical Exam Vital Signs: Temperature 97.6 F Pulse Rate [Right Radial] 72 Pulse Rate 106 Respiratory Rate 14 Blood Pressure [Left Arm] 123/83 Blood Pressure [Right Arm] 178/98 Blood Pressure 141/84 O2 Sat by Pulse Oximetry 97 Oriented: Normal, Time and Person Eyes: Normal Ear: Normal Nose: Normal Throat: Normal Respiratory: Clear Throughout Cardiovascular: Normal Auscultation: Bowel Sounds: Normal Palpation: Normal Tenderness: Normal Skin: Tender, Wound and Other (distal finger tips and thumb ulcers) Psychiatric: Anxiety and Depression Mood Description: Sad Affect: Hysterical Speech Pattern: Clear and Appropriate Assessment/Plan (1) Buerger's disease: Status: Acute Plan: We will get the patient a nicotine patch and we will give her hydrocodone 10/325 mg every 4 hours for pain. Discharge later today or either in the morning. Also encouraged patient not to smoke and to continue his nicotine patches and nicotine gum as this would help her Buerger's disease more than anything. (2) Acute hyponatremia: Narrative Support Text: Sodium is improved today since admission yesterday. Still not at goal yet. Status: Acute Plan: Normal saline IV fluid. Repeat sodium level at 1500 this afternoon. (3) Acute hypokalemia: Narrative Support Text: Potassium has normalized this morning at 3.7. Status: Acute Plan: Replace potassium as needed.
[2022-08-02] MEDS: D5 NS + KCL 20 MEQ/L 1,000 ML IV SCH (00:19)
[2022-08-02] MEDS: NORCO 10/325 TAB PO PRN ×5 (00:23→22:55)
[2022-08-02] MEDS: DILAUDID INJ IVP PRN ×4 (02:52→20:48)
[2022-08-02 06:05] LABS: BASOPHILS % (AUTO) 0.6 % (0.2-1.0); EOSINOPHILS # (AUTO) 0.1 x10^3/uL (0.0-0.2); EOSINOPHILS % (AUTO) 1.4 % (0.9-2.9); HEMATOCRIT 43.9 % (36.0-47.0); HEMOGLOBIN 14.6 g/dL (12.0-16.0); LYMPHOCYTES # (AUTO) 1.1 X10^3/uL (1.3-2.9); LYMPHOCYTES % (AUTO) 16.5 % (21.0-51.0); MEAN CORPUSCULAR HEMOGLOBIN 30.9 pg (27.0-34.0); MEAN CORPUSCULAR HGB CONC 33.3 g/dL (33.0-35.0); MEAN CORPUSCULAR VOLUME 92.6 fL (80.0-100.0); MEAN PLATELET VOLUME 8.6 fL (7.4-11.0); MONOCYTES # (AUTO) 0.9 x10^3/uL (0.3-0.8); MONOCYTES % (AUTO) 13.9 % (0.0-13.0); NEUTROPHILS # (AUTO) 4.5 x10^3/uL (2.2-4.8); NEUTROPHILS % (AUTO) 67.6 % (42.0-75.0); PLATELET COUNT 219 X10^3/uL (150.0-450.0); RED BLOOD COUNT 4.74 X10^6/uL (3.5-5.4); RED CELL DISTRIBUTION WIDTH 13.8 % (11.6-16.5); WHITE BLOOD COUNT 6.7 X10^3/uL (3.6-10.0)
[2022-08-02 06:08] LABS: ALANINE AMINOTRANSFERASE 6 Units/L (12-78); ALBUMIN 2.4 g/dL (3.4-5.0); ALKALINE PHOSPHATASE 79 Units/L (46-116); ASPARTATE AMINO TRANSFERASE 18 Units/L (15-37); BLOOD UREA NITROGEN 5 mg/dL (7-18); CALCIUM 8.4 mg/dL (8.5-10.1); CARBON DIOXIDE 33.2 mmol/L (21-32); CHLORIDE 94 mmol/L (98-107); COR CA(FOR HYPOALB) 9.7 mg/dL (8.5-10.1); CREATININE 0.75 mg/dL (0.55-1.02); GLUCOSE 92 mg/dL (65-99); SODIUM 131 mmol/L (136-145); TOTAL PROTEIN 7.4 g/dL (6.4-8.2); eGFR NON BLACK RACES > 60 (>60)
[2022-08-02] MEDS: ZOFRAN INJ 4 MG VIAL IVP PRN (07:20)
[2022-08-02] MEDS ORDERED: TOPROL XL PO ONE (07:31)
[2022-08-02] MEDS: NICOTINE PATCH TD SCH (08:03)
[2022-08-02] MEDS: TOPROL XL PO SCH (08:03)
[2022-08-02] MEDS: NORVASC TAB 10 MG PO SCH (08:04)
[2022-08-02] MEDS ORDERED: NITRO-BID OINT 2% UD (E.R. USE ONLY) TOP NR (09:00)
[2022-08-02] MEDS: NS 1,000 ML IV 1,000 ML IV SCH ×3 (09:20→23:59)
[2022-08-02] MEDS: VISTARIL PO PRN ×2 (12:48→20:47)
[2022-08-02] MEDS: DIOVAN TAB 80 MG PO SCH (14:15)
--- NOTE | 2022-08-02 14:15 | PCM.PROG ---
Progress Note Progress Note for Day of Date of Exam: 08/02/22 Subjective Subjective: This morning the patient is lying in bed crying stating that her hands are hurting worse. The lung was tender to more she cries. However nurses state when they entered the room unexpectedly she is not crying but starts after someone enters the room. This is typical behavior for her even in my office. She still complaining of pain in the distal ends of her fingers. I do see they did not get the nitroglycerin paste ordered to place on her fingertips so we will order it at this point. I also stopped her chlorthalidone because of her hyponatremia and hypokalemia. This is a adverse effect to chlorthalidone. I will start her on valsartan 80 mg daily as I see her blood pressure has creep back up since stopping the chlorthalidone. She currently is receiving hydrocodoneacetaminophen 10/325 mg every 4 hours for her Buerger's disease. Her potassium level has normalized this morning. However her sodium remains low at 131. She has been receiving D5 half-normal saline. I am stopping that IV fluid and changing her over to normal saline at 75 cc an hour. Once her sodium normalizes we will plan on discharging her home. While reviewing her labs from years ago before she was a patient of mine. I see that she was positive for CATHERINE, anticardiolipin IgM antibodies and cryoglobulins. I will discuss this with the patient in the morning and get her set up with a english composition instructor. Past Medical Family Social History Allergies: Allergies No Known Drug Allergies Allergy (Unknown, Verified 07/21/22 09:41) Onset Date: 02/22/2021 Review of Systems ROS: No change since H&P Vital Signs and I&O's Vital Signs: Temperature 98.3 F Pulse Rate [Right Radial] 86 Pulse Rate 106 Respiratory Rate 18 Blood Pressure [Left Arm] 164/104 Blood Pressure [Right Arm] 163/98 Blood Pressure 141/84 O2 Sat by Pulse Oximetry 100 Intake and Output: Intake & Output 07/31/22 08/01/22 08/02/22 08/03/22 11:59 11:59 11:59 11:59 Intake Total 1800 / 1800 3748 / 3748 Balance 1800 / 1800 3748 / 3748 Physical Exam Oriented: Normal, Time and Person Eyes: Normal Ear: Normal Nose: Normal Throat: Normal Respiratory: Normal Cardiovascular: Normal Auscultation: Bowel Sounds: Normal Tenderness: Normal Skin: Tender, Wound and Other (distal finger tips and thumb ulcers) Psychiatric: Anxiety and Depression Mood Description: Sad Affect: Hysterical Speech Pattern: Clear and Appropriate Laboratory and Diagnostics Result Diagrams: 08/02/22 05:16 08/02/22 05:16 Labs: Laboratory WBC 6.7 X10^3/uL (3.6-10.0) 08/02/22 05:16 RBC 4.74 X10^6/uL (3.5-5.4) 08/02/22 05:16 Hgb 14.6 g/dL (12.0-16.0) 08/02/22 05:16 Hct 43.9 % (36.0-47.0) 08/02/22 05:16 MCV 92.6 fL (80.0-100.0) 08/02/22 05:16 MCH 30.9 pg (27.0-34.0) 08/02/22 05:16 MCHC 33.3 g/dL (33.0-35.0) 08/02/22 05:16 RDW 13.8 % (11.6-16.5) 08/02/22 05:16 Plt Count 219 X10^3/uL (150.0-450.0) 08/02/22 05:16 MPV 8.6 fL (7.4-11.0) 08/02/22 05:16 Neut % (Auto) 67.6 % (42.0-75.0) 08/02/22 05:16 Lymph % (Auto) 16.5 % (21.0-51.0) L 08/02/22 05:16 [place] % (Auto) 13.9 % (0.0-13.0) H 08/02/22 05:16 Eos % (Auto) 1.4 % (0.9-2.9) 08/02/22 05:16 Baso % (Auto) 0.6 % (0.2-1.0) 08/02/22 05:16 Neut # (Auto) 4.5 x10^3/uL (2.2-4.8) 08/02/22 05:16 Lymph # (Auto) 1.1 X10^3/uL (1.3-2.9) L 08/02/22 05:16 [place] # (Auto) 0.9 x10^3/uL (0.3-0.8) H 08/02/22 05:16 Eos # (Auto) 0.1 x10^3/uL (0.0-0.2) 08/02/22 05:16 Baso # (Auto) 0.0 X10^3/uL (0.0-0.1) 08/02/22 05:16 Absolute Nucleated RBC 0.1 /100WBC 08/02/22 05:16 Sodium 131 mmol/L (136-145) L 08/02/22 05:16 Corrected Sodium TNP 08/02/22 05:16 Potassium 4.0 mmol/L (3.5-5.1) 08/02/22 05:16 Chloride 94 mmol/L (98-107) L 08/02/22 05:16 Carbon Dioxide 33.2 mmol/L (21-32) H 08/02/22 05:16 BUN 5 mg/dL (7-18) L 08/02/22 05:16 Creatinine 0.75 mg/dL (0.55-1.02) 08/02/22 05:16 Est GFR (MDRD) Af Amer > 60 (>60) 08/02/22 05:16 Est GFR (MDRD) Non-Af > 60 (>60) 08/02/22 05:16 Glucose 92 mg/dL (65-99) 08/02/22 05:16 Hemoglobin A1c 4.9 % 07/31/22 14:21 Calcium 8.4 mg/dL (8.5-10.1) L 08/02/22 05:16 Corrected Calcium 9.7 mg/dL (8.5-10.1) 08/02/22 05:16 Phosphorus 2.9 mg/dL (2.6-4.7) 07/31/22 14:21 Magnesium 2.3 mg/dL (2.0-2.9) 08/01/22 04:30 Total Bilirubin 0.40 mg/dL (0.2-1.0) 08/02/22 05:16 AST 18 Units/L (15-37) 08/02/22 05:16 ALT 6 Units/L (12-78) L 08/02/22 05:16 Alkaline Phosphatase 79 Units/L (46-116) 08/02/22 05:16 Total Protein 7.4 g/dL (6.4-8.2) 08/02/22 05:16 Albumin 2.4 g/dL (3.4-5.0) L 08/02/22 05:16 Globulin 5.0 g/dL (2.5-4.5) H 08/02/22 05:16 Albumin/Globulin Ratio 0.5 Ratio (1.1-2.1) L 08/02/22 05:16 Plan (1) Buerger's disease: Status: Acute Narrative Support Text: Nitroglycerin cream never got started yesterday morning per nurses. Patient reports she still in significant pain with her fingers. Plan: We are starting nitroglycerin cream to the patient's fingertips. We we will see how this does today and plan on discharging her home tomorrow morning. (2) Acute hyponatremia: Status: Acute Narrative Support Text: Patient's sodium is 131 this morning. This is improved since yesterday. Plan: Discontinue D5 half-normal saline. Change to normal saline IV fluid at 75 cc an hour. (3) Acute hypokalemia: Status: Resolved Plan: Replace potassium as needed.
[2022-08-03] MEDS: DILAUDID INJ IVP PRN ×4 (02:15→23:15)
[2022-08-03 05:19] LABS: BASOPHILS # (AUTO) 0.1 X10^3/uL (0.0-0.1); BASOPHILS % (AUTO) 0.7 % (0.2-1.0); EOSINOPHILS # (AUTO) 0.1 x10^3/uL (0.0-0.2); EOSINOPHILS % (AUTO) 1.7 % (0.9-2.9); HEMATOCRIT 41.6 % (36.0-47.0); HEMOGLOBIN 14.1 g/dL (12.0-16.0); LYMPHOCYTES # (AUTO) 1.4 X10^3/uL (1.3-2.9); LYMPHOCYTES % (AUTO) 17.4 % (21.0-51.0); MEAN CORPUSCULAR HGB CONC 33.8 g/dL (33.0-35.0); MEAN CORPUSCULAR VOLUME 91.7 fL (80.0-100.0); MEAN PLATELET VOLUME 8.7 fL (7.4-11.0); MONOCYTES # (AUTO) 1.2 x10^3/uL (0.3-0.8); MONOCYTES % (AUTO) 14.8 % (0.0-13.0); NEUTROPHILS # (AUTO) 5.2 x10^3/uL (2.2-4.8); NEUTROPHILS % (AUTO) 65.4 % (42.0-75.0); PLATELET COUNT 261 X10^3/uL (150.0-450.0); RED BLOOD COUNT 4.54 X10^6/uL (3.5-5.4); RED CELL DISTRIBUTION WIDTH 13.6 % (11.6-16.5); WHITE BLOOD COUNT 7.9 X10^3/uL (3.6-10.0)
[2022-08-03 05:28] LABS: ALANINE AMINOTRANSFERASE < 6 Units/L (12-78); ALBUMIN 2.2 g/dL (3.4-5.0); ALKALINE PHOSPHATASE 80 Units/L (46-116); ASPARTATE AMINO TRANSFERASE 18 Units/L (15-37); BLOOD UREA NITROGEN 6 mg/dL (7-18); CALCIUM 8.6 mg/dL (8.5-10.1); CARBON DIOXIDE 29.8 mmol/L (21-32); CHLORIDE 96 mmol/L (98-107); GLUCOSE 96 mg/dL (65-99); MAGNESIUM 1.4 mg/dL (2.0-2.9); POTASSIUM 4.1 mmol/L (3.5-5.1); SODIUM 130 mmol/L (136-145); TOTAL PROTEIN 7.1 g/dL (6.4-8.2); eGFR NON BLACK RACES > 60 (>60)
[2022-08-03] MEDS: NORCO 10/325 TAB PO PRN ×4 (06:15→22:24)
[2022-08-03] MEDS ORDERED: TOPROL XL PO ONE (07:00)
[2022-08-03] MEDS: TOPROL XL PO SCH (09:30)
[2022-08-03] MEDS: NORVASC TAB 10 MG PO SCH (09:30)
[2022-08-03] MEDS: DIOVAN TAB 80 MG PO SCH (09:30)
[2022-08-03] MEDS: NICOTINE PATCH TD SCH (10:52)
--- NOTE | 2022-08-03 12:40 | PCM.PROG ---
Progress Note Progress Note for Day of Date of Exam: 08/03/22 Subjective Subjective: This morning the patient is sitting up on the edge of the bed crying. She reports that her fingers are still hurting. However when the nurse came to help her to the bathroom few minutes before we got there she was not crying until we came to the door to do morning rounds. After that the nurse reports that she started crying, back from the bathroom. Her sodium is still low this morning at 130 despite putting her on normal saline yesterday. Her magnesium is also low at 140. We will replace her magnesium today and continue to give her normal saline. Plan on discharge home tomorrow morning. Past Medical Family Social History Allergies: Allergies No Known Drug Allergies Allergy (Unknown, Verified 07/21/22 09:41) Onset Date: 02/22/2021 Review of Systems ROS: No change since H&P Vital Signs and I&O's Vital Signs: Temperature 98.5 F Pulse Rate [Right Radial] 66 Pulse Rate 106 Respiratory Rate 18 Blood Pressure [Left Arm] 125/78 Blood Pressure [Right Arm] 154/94 Blood Pressure 141/84 O2 Sat by Pulse Oximetry 100 Intake and Output: Intake & Output 08/01/22 08/02/22 08/03/22 08/04/22 11:59 11:59 11:59 11:59 Intake Total 1800 / 1800 3748 / 3748 2835 / 2835 Balance 1800 / 1800 3748 / 3748 2835 / 2835 Physical Exam Oriented: Normal, Time and Person Eyes: Normal Ear: Normal Nose: Normal Throat: Normal Respiratory: Normal Cardiovascular: Normal Auscultation: Bowel Sounds: Normal Tenderness: Normal Skin: Tender, Wound and Other (distal finger tips and thumb ulcers) Psychiatric: Anxiety and Depression Mood Description: Sad Affect: Hysterical Speech Pattern: Clear and Appropriate Laboratory and Diagnostics Result Diagrams: 08/03/22 04:30 08/03/22 04:30 Labs: Laboratory WBC 7.9 X10^3/uL (3.6-10.0) 08/03/22 04:30 RBC 4.54 X10^6/uL (3.5-5.4) 08/03/22 04:30 Hgb 14.1 g/dL (12.0-16.0) 08/03/22 04:30 Hct 41.6 % (36.0-47.0) 08/03/22 04:30 MCV 91.7 fL (80.0-100.0) 08/03/22 04:30 MCH 31.0 pg (27.0-34.0) 08/03/22 04:30 MCHC 33.8 g/dL (33.0-35.0) 08/03/22 04:30 RDW 13.6 % (11.6-16.5) 08/03/22 04:30 Plt Count 261 X10^3/uL (150.0-450.0) 08/03/22 04:30 MPV 8.7 fL (7.4-11.0) 08/03/22 04:30 Neut % (Auto) 65.4 % (42.0-75.0) 08/03/22 04:30 Lymph % (Auto) 17.4 % (21.0-51.0) L 08/03/22 04:30 [place] % (Auto) 14.8 % (0.0-13.0) H 08/03/22 04:30 Eos % (Auto) 1.7 % (0.9-2.9) 08/03/22 04:30 Baso % (Auto) 0.7 % (0.2-1.0) 08/03/22 04:30 Neut # (Auto) 5.2 x10^3/uL (2.2-4.8) H 08/03/22 04:30 Lymph # (Auto) 1.4 X10^3/uL (1.3-2.9) 08/03/22 04:30 [place] # (Auto) 1.2 x10^3/uL (0.3-0.8) H 08/03/22 04:30 Eos # (Auto) 0.1 x10^3/uL (0.0-0.2) 08/03/22 04:30 Baso # (Auto) 0.1 X10^3/uL (0.0-0.1) 08/03/22 04:30 Absolute Nucleated RBC 0.1 /100WBC 08/03/22 04:30 Sodium 130 mmol/L (136-145) L 08/03/22 04:30 Corrected Sodium TNP 08/03/22 04:30 Potassium 4.1 mmol/L (3.5-5.1) 08/03/22 04:30 Chloride 96 mmol/L (98-107) L 08/03/22 04:30 Carbon Dioxide 29.8 mmol/L (21-32) 08/03/22 04:30 BUN 6 mg/dL (7-18) L 08/03/22 04:30 Creatinine 0.80 mg/dL (0.55-1.02) 08/03/22 04:30 Est GFR (MDRD) Af Amer > 60 (>60) 08/03/22 04:30 Est GFR (MDRD) Non-Af > 60 (>60) 08/03/22 04:30 Glucose 96 mg/dL (65-99) 08/03/22 04:30 Hemoglobin A1c 4.9 % 07/31/22 14:21 Calcium 8.6 mg/dL (8.5-10.1) 08/03/22 04:30 Corrected Calcium 10.0 mg/dL (8.5-10.1) 08/03/22 04:30 Phosphorus 2.9 mg/dL (2.6-4.7) 07/31/22 14:21 Magnesium 1.4 mg/dL (2.0-2.9) L 08/03/22 04:30 Total Bilirubin 0.50 mg/dL (0.2-1.0) 08/03/22 04:30 AST 18 Units/L (15-37) 08/03/22 04:30 ALT < 6 Units/L (12-78) L 08/03/22 04:30 Alkaline Phosphatase 80 Units/L (46-116) 08/03/22 04:30 Total Protein 7.1 g/dL (6.4-8.2) 08/03/22 04:30 Albumin 2.2 g/dL (3.4-5.0) L 08/03/22 04:30 Globulin 4.9 g/dL (2.5-4.5) H 08/03/22 04:30 Albumin/Globulin Ratio 0.4 Ratio (1.1-2.1) L 08/03/22 04:30 Plan (1) Buerger's disease: Status: Acute Narrative Support Text: Pain is better controlled since starting nitroglycerin paste to the fingertips yesterday. Plan: Continue pain control with hydrocodone every 4 hours and nitroglycerin paste to fingertips. Plan on discharging home tomorrow morning if her sodium and magnesium have normalized. (2) Acute hyponatremia: Status: Acute Plan: Continue normal saline IV fluid at 75 cc an hour. (3) Acute hypokalemia: Status: Resolved Plan: Replace potassium as needed. (4) Hypomagnesemia: Status: Acute Plan: Replacement with the potassium/magnesium replacement protocol.
[2022-08-03] MEDS: NS 1,000 ML IV 1,000 ML IV SCH (17:42)
[2022-08-04] MEDS: DILAUDID INJ IVP PRN (03:28)
[2022-08-04] MEDS: NS 1,000 ML IV 1,000 ML IV SCH (03:28)
[2022-08-04] MEDS: NORCO 10/325 TAB PO PRN ×2 (04:39→09:07)
[2022-08-04 06:35] LABS: ALANINE AMINOTRANSFERASE < 6 Units/L (12-78); ALKALINE PHOSPHATASE 68 Units/L (46-116); ASPARTATE AMINO TRANSFERASE 14 Units/L (15-37); BLOOD UREA NITROGEN 7 mg/dL (7-18); CALCIUM 8.1 mg/dL (8.5-10.1); CARBON DIOXIDE 26.7 mmol/L (21-32); CHLORIDE 96 mmol/L (98-107); COR CA(FOR HYPOALB) 9.7 mg/dL (8.5-10.1); COR NA(FOR HYPERGLY) 131 mmol/L (136-145); CREATININE 0.83 mg/dL (0.55-1.02); GLUCOSE 126 mg/dL (65-99); MAGNESIUM 1.6 mg/dL (2.0-2.9); POTASSIUM 3.8 mmol/L (3.5-5.1); SODIUM 130 mmol/L (136-145); TOTAL PROTEIN 6.6 g/dL (6.4-8.2); eGFR NON BLACK RACES > 60 (>60)
[2022-08-04 08:57] VITALS: BP 147/85
[2022-08-04] MEDS: TOPROL XL PO SCH (08:59)
[2022-08-04] MEDS: DIOVAN TAB 80 MG PO SCH (09:00)
[2022-08-04] MEDS: NORVASC TAB 10 MG PO SCH (09:00)
[2022-08-04] MEDS: NICOTINE PATCH TD SCH (09:10)
[2022-08-04] MEDS: TOPROL XL PO ONE (09:10)
--- NOTE | 2022-08-04 15:51 | PCM.DCPLAN ---
DISCHARGE SUMMARY Admission Date Date of Admission: 07/31/22 Discharge Date Discharge Date: 08/04/22 Admission Diagnoses (1) Buerger's disease: Status: Acute (2) Acute hyponatremia: Status: Acute (3) Acute hypokalemia: Status: Resolved (4) Hypomagnesemia: Status: Acute (5) Nicotine addiction: Status: Acute (6) Hypertension: Status: Acute Discharge Diagnoses Discharge Diagnosis: 1. Buerger's disease 2. Nicotine addiction 3. Hyponatremia 4. Hypokalemiaresolved 5. Hypomagnesemia-resolved 6. Hypertension Discharge Medications Discharge Medications: Home Medication List nicotine 21 mg/24 hr daily transdermal patch (Nicoderm CQ) 1 patch transdermal Q24H #10 ea 08/04/22 [Rx] Prescriptions: nicotine [Nicoderm CQ] CARMELITA PEREYRA Hospital Course Vital Signs: Temperature 98.5 F Pulse Rate [Right Radial] 76 Pulse Rate 106 Respiratory Rate 20 Blood Pressure [Left Arm] 147/85 Blood Pressure [Right Arm] 154/94 Blood Pressure 141/84 O2 Sat by Pulse Oximetry 100 Latest Lab Results: Laboratory Last Values WBC 7.9 X10^3/uL (3.6-10.0) 08/03/22 04:30 RBC 4.54 X10^6/uL (3.5-5.4) 08/03/22 04:30 Hgb 14.1 g/dL (12.0-16.0) 08/03/22 04:30 Hct 41.6 % (36.0-47.0) 08/03/22 04:30 MCV 91.7 fL (80.0-100.0) 08/03/22 04:30 MCH 31.0 pg (27.0-34.0) 08/03/22 04:30 MCHC 33.8 g/dL (33.0-35.0) 08/03/22 04:30 RDW 13.6 % (11.6-16.5) 08/03/22 04:30 Plt Count 261 X10^3/uL (150.0-450.0) 08/03/22 04:30 MPV 8.7 fL (7.4-11.0) 08/03/22 04:30 Neut % (Auto) 65.4 % (42.0-75.0) 08/03/22 04:30 Lymph % (Auto) 17.4 % (21.0-51.0) L 08/03/22 04:30 [place] % (Auto) 14.8 % (0.0-13.0) H 08/03/22 04:30 Eos % (Auto) 1.7 % (0.9-2.9) 08/03/22 04:30 Baso % (Auto) 0.7 % (0.2-1.0) 08/03/22 04:30 Neut # (Auto) 5.2 x10^3/uL (2.2-4.8) H 08/03/22 04:30 Lymph # (Auto) 1.4 X10^3/uL (1.3-2.9) 08/03/22 04:30 [place] # (Auto) 1.2 x10^3/uL (0.3-0.8) H 08/03/22 04:30 Eos # (Auto) 0.1 x10^3/uL (0.0-0.2) 08/03/22 04:30 Baso # (Auto) 0.1 X10^3/uL (0.0-0.1) 08/03/22 04:30 Absolute Nucleated RBC 0.1 /100WBC 08/03/22 04:30 Sodium 130 mmol/L (136-145) L 08/04/22 05:55 Corrected Sodium 131 mmol/L (136-145) L 08/04/22 05:55 Potassium 3.8 mmol/L (3.5-5.1) 08/04/22 05:55 Chloride 96 mmol/L (98-107) L 08/04/22 05:55 Carbon Dioxide 26.7 mmol/L (21-32) 08/04/22 05:55 BUN 7 mg/dL (7-18) 08/04/22 05:55 Creatinine 0.83 mg/dL (0.55-1.02) 08/04/22 05:55 Est GFR (MDRD) Af Amer > 60 (>60) 08/04/22 05:55 Est GFR (MDRD) Non-Af > 60 (>60) 08/04/22 05:55 Glucose 126 mg/dL (65-99) H 08/04/22 05:55 Hemoglobin A1c 4.9 % 07/31/22 14:21 Calcium 8.1 mg/dL (8.5-10.1) L 08/04/22 05:55 Corrected Calcium 9.7 mg/dL (8.5-10.1) 08/04/22 05:55 Phosphorus 2.9 mg/dL (2.6-4.7) 07/31/22 14:21 Magnesium 1.6 mg/dL (2.0-2.9) L 08/04/22 05:55 Total Bilirubin 0.50 mg/dL (0.2-1.0) 08/04/22 05:55 AST 14 Units/L (15-37) L 08/04/22 05:55 ALT < 6 Units/L (12-78) L 08/04/22 05:55 Alkaline Phosphatase 68 Units/L (46-116) 08/04/22 05:55 Total Protein 6.6 g/dL (6.4-8.2) 08/04/22 05:55 Albumin 2.0 g/dL (3.4-5.0) L 08/04/22 05:55 Globulin 4.6 g/dL (2.5-4.5) H 08/04/22 05:55 Albumin/Globulin Ratio 0.4 Ratio (1.1-2.1) L 08/04/22 05:55 Hospital Course: This is a 57-year-old white female whom I am well acquainted with. She has a history of Buerger's disease since last year. I have been treating her with hydrocodone and encouraging her to stop smoking. She has been compliant with her hydrocodone but her insurance only allows her to get 1 week of medication at the time. She reports to have been taking it every 6 hours but is not controlling her pain at this time. Over the last few days the pain has become unbearable so she came to the emergency department Monday for help. She reports that her hands and fingers are burning and stinging and cannot get any relief. She was found to be hyponatremic and hypokalemic with a potassium of 2.5 in the emergency department. Because of her electrolyte imbalance and pain we elected to admit her to correct her electrolytes and get her pain under better control. Over the next few days patient's potassium was corrected with the potassium/magnesium replacement protocol. After she had been receiving D5 half- normal saline her sodium only came up to 131. I therefore changed it to normal saline and given to her at 75 cc an hour. However despite doing this for 2 days her sodium stayed at 130. During these days the patient was complaining of f daniela pain. We change her hydrocodone to every 4 hours performed through the pain control and started her on nitroglycerin cream applied to her fingertips. This helped fairly well relieve the pain in her fingers and this morning she is not upset or crying from pain today. Everything looks well with the patient this morning except her sodium is still slightly low. I have stopped her chlorthalidone 25 mg daily as it is known to cause hyponatremia and hypokalemia. I will be getting her set up with a hospital follow-up within a week to see me. I will send her in pain medicine today hydrocodone 10/325 mg 1 every 4 hours as needed pain and give her 42 as her insurance only allows her to have 1 week at a time of pain medicine. Patient reports that she has nitroglycerin cream at home that she will use that. I will also send her in nicotine patches to help her with her nicotine addiction and have her to stop smoking. Patient discharged home in stable condition and I will see her in a week or sooner if she needs to come in before week.
== END 2022-08-04 11:05 | disposition home or self-care (01) | DRG 300 ==
LOC: ER 13:42 → MED/SURG 15:59
PROVIDERS: ADMIT Family Medicine; ATTEND Family Medicine
DX: E87.1 Hypo-osmolality and hyponatremia; E87.6 Hypokalemia; I73.1 Thromboangiitis obliterans [Buerger's disease]; F41.9 Anxiety disorder, unspecified; E83.42 Hypomagnesemia; F17.210 Nicotine dependence, cigarettes, uncomplicated; M19.90 Unspecified osteoarthritis, unspecified site; I10 Essential (primary) hypertension

== ENCOUNTER 2022-08-17 16:26 | Inpatient (IN) ==
--- NOTE | 2022-08-17 20:34 | DR.UPDATE ---
H&P UPDATE Review Yes Any changes to H&P?: Yes
[2022-08-17] MEDS: DILAUDID INJ IVP PRN (21:03)
[2022-08-17 21:23] LABS: BASOPHILS % (AUTO) 0.3 % (0.2-1.0); EOSINOPHILS # (AUTO) 0.1 x10^3/uL (0.0-0.2); EOSINOPHILS % (AUTO) 0.8 % (0.9-2.9); HEMATOCRIT 41.6 % (36.0-47.0); HEMOGLOBIN 14.2 g/dL (12.0-16.0); LYMPHOCYTES # (AUTO) 1.2 X10^3/uL (1.3-2.9); MEAN CORPUSCULAR HEMOGLOBIN 30.9 pg (27.0-34.0); MEAN CORPUSCULAR HGB CONC 34.1 g/dL (33.0-35.0); MEAN CORPUSCULAR VOLUME 90.7 fL (80.0-100.0); MEAN PLATELET VOLUME 8.2 fL (7.4-11.0); MONOCYTES # (AUTO) 0.9 x10^3/uL (0.3-0.8); MONOCYTES % (AUTO) 8.8 % (0.0-13.0); NEUTROPHILS # (AUTO) 7.6 x10^3/uL (2.2-4.8); NEUTROPHILS % (AUTO) 78.1 % (42.0-75.0); PLATELET COUNT 379 X10^3/uL (150.0-450.0); RED BLOOD COUNT 4.59 X10^6/uL (3.5-5.4); RED CELL DISTRIBUTION WIDTH 13.7 % (11.6-16.5); WHITE BLOOD COUNT 9.8 X10^3/uL (3.6-10.0)
[2022-08-17 21:29] LABS: ALBUMIN 2.4 g/dL (3.4-5.0); CALCIUM 8.7 mg/dL (8.5-10.1); CARBON DIOXIDE 30.6 mmol/L (21-32); CREATININE 1.51 mg/dL (0.55-1.02); TOTAL PROTEIN 8.1 g/dL (6.4-8.2)
[2022-08-17 21:32] LABS: POTASSIUM 2.8 mmol/L (3.5-5.1)
[2022-08-17] MEDS ORDERED: POTASSIUM CHL 40 MEQ/NS 0.45% 500 ML IV PRN (22:17)
[2022-08-17] MEDS ORDERED: POTASSIUM CHLORIDE LIQ 20 MEQ UDC PO PRN (22:17)
[2022-08-17] MEDS ORDERED: K-RIDER 10 MEQ/NS 100 ML 10 MEQ/100 ML BAG IV PRN (22:17)
[2022-08-17] MEDS ORDERED: MICRO K EXTEN CAP 10 MEQ PO PRN (22:17)
[2022-08-17] MEDS ORDERED: POTASSIUM CHL 60 MEQ/NS 0.45% 500 ML IV PRN (22:17)
[2022-08-17] MEDS ORDERED: KLOR-CON PO PRN (22:17)
--- NOTE | 2022-08-17 22:31 | EKG ---
Test Reason : Must have current EKG Blood Pressure : */* mmHG Vent. Rate : 89 BPM Atrial Rate : 89 BPM P-R Int : 128 ms QRS Dur : 70 ms QT Int : 344 ms P-R-T Axes : 45 41 -82 degrees QTc Int : 418 ms Normal sinus rhythm Abnormal ECG When compared with ECG of 30-MAY-2022 11:06, Questionable change in QRS axis Inverted T waves have replaced nonspecific T wave abnormality in Inferior leads T wave inversion more evident in Anterolateral leads Confirmed by Arben Florence ([id number]) on 08/19/2022 4:39:15 PM Referred By: Confirmed By: Arben Florence
[2022-08-17] MEDS: NICOTINE PATCH TD SCH (22:45)
[2022-08-17] MEDS: LR 1,000 ML IV 1,000 ML IV SCH (22:45)
[2022-08-17] MEDS: PERCOCET TAB 5/325 MG PO PRN (22:53)
[2022-08-17] MEDS: K-DUR TAB 20 MEQ PO PRN (22:53)
[2022-08-18] MEDS: DILAUDID INJ IVP PRN ×7 (00:50→22:30)
[2022-08-18] MEDS: K-DUR TAB 20 MEQ PO PRN (01:44)
[2022-08-18] MEDS: PERCOCET TAB 5/325 MG PO PRN ×2 (05:55→18:11)
[2022-08-18] MEDS: MAGNESIUM SULFATE 1 GRAM/100 mL PREMIX 1 G/100 ML BAG IV PRN ×2 (06:40→08:38)
--- NOTE | 2022-08-18 07:01 | RAD ---
HISTORYBIL UPPER EXTREMITY PAINSTUDYCHEST, 1 [id number]/13/2023FINDINGSThe trachea is midline. The cardiac silhouette is unremarkable . The lungs are clear without focal infiltrate or effusion. The bony thorax is unremarkable.IMPRESSIONNo acute cardiopulmonary disease.Electronically signed by: BC RODRIGUEZ (Aug 18, 2022 06:51:41)
[2022-08-18] MEDS ORDERED: TOPROL XL PO ONE (08:28)
[2022-08-18] MEDS: PLAVIX PO SCH (08:38)
[2022-08-18] MEDS: LOVENOX INJ 40 MG SYR SC SCH (08:38)
[2022-08-18] MEDS: NORVASC TAB 10 MG PO SCH (08:38)
[2022-08-18] MEDS: CHLORTHALIDONE PO SCH (08:38)
[2022-08-18] MEDS: TOPROL XL PO SCH (08:38)
[2022-08-18] MEDS: NICOTINE PATCH TD SCH ×2 (09:51→15:24)
[2022-08-18] MEDS: LR 1,000 ML IV 1,000 ML IV SCH ×3 (14:38→22:50)
[2022-08-18 17:08] VITALS: BMI 18.7
[2022-08-18] MEDS ORDERED: DILAUDID INJ IM ONE (18:29)
[2022-08-18] MEDS ORDERED: DILAUDID INJ IVP ONE (18:43)
--- NOTE | 2022-08-18 23:23 | NOTE.SOAP ---
Soap Note Note for Day of Date of Exam: 08/18/22 Subjective Data Subjective Data: Still c/o pain of fingers.CTA report pending . K+ replaced Objective Data Temperature: 98 F Pulse Rate: 81 Respiratory Rate: 18 Blood Pressure: 128/79 O2 Sat by Pulse Oximetry: 100 Objective Data: No change Assessment Assessment: Buerger's disease Plan Plan: Tobacco cessation and pain control. Review CTA aortic arch and upper exrtemities when available
[2022-08-19] MEDS: DILAUDID INJ IVP PRN ×8 (00:40→20:40)
[2022-08-19] MEDS: PERCOCET TAB 5/325 MG PO PRN ×2 (00:40→22:43)
[2022-08-19] MEDS: LR 1,000 ML IV 1,000 ML IV SCH ×2 (05:25→15:30)
[2022-08-19] MEDS ORDERED: TOPROL XL PO ONE (07:57)
[2022-08-19] MEDS: LOVENOX INJ 40 MG SYR SC SCH (08:27)
[2022-08-19] MEDS: NICOTINE PATCH TD SCH (08:27)
[2022-08-19] MEDS: PLAVIX PO SCH (08:28)
[2022-08-19] MEDS: NORVASC TAB 10 MG PO SCH (08:28)
[2022-08-19] MEDS: TOPROL XL PO SCH (08:28)
[2022-08-19] MEDS: CHLORTHALIDONE PO SCH (08:29)
[2022-08-19] MEDS: MAGNESIUM SULFATE 1 GRAM/100 mL PREMIX 1 G/100 ML BAG IV PRN (08:30)
--- NOTE | 2022-08-19 09:19 | CT ---
HISTORYRIGHT upper ext painSTUDYCTA UPPER EXTREMITY W/ CONTRASTCOMPARISONNone availableTECHNIQUEAngiogram protocol through the right upper extremity was performed without and with intravenous contrast. CT scan was performed following ALARA (As low as Reasonably Achievable).Coronal and Sagittal reformatted images were performed.FINDINGSThere is a bovine type arch. There is normal enhancement of the great vessels without focal calcificationThere is normal enhancement of the right brachiocephalic trunk with normal enhancement of the right common carotid artery and the right subclavian artery, there is normal enhancement of the axillary artery and the proximal aspect of the brachial artery. There is decrease intensity of the enhancement throughout the distal humerus without enhancement in the forearm and hand probably related to a slow flow with limited evaluation of the area.There is no significant calcification of the vessels in the noncontrast images along the forearm hand and humeral region.The thyroid gland is no significant enlarged. The included lung demonstrate emphysema with honeycombing along the periphery consistent with lung fibrosis.No dominant lesions in the liver, no adrenal masses, there bilateral normal enhancing kidneys without hydronephrosis. The pelvis demonstrate a mildly enlarged uterus with a calcified fundal fibroid measuring 3.4 centimeters. The urinary bladder is unremarkable, no diverticulitisThere is focal enhancement of the inferior thoracic descending aorta and the abdominal aorta, there is no focal stenosis of the celiac trunk, superior mesenteric artery and bilateral renal arteries. There is a small inferior and anterior accessory right renal artery. There is normal enhancement of the aortic bifurcation with mild calcificationThere is bilateral calcification of the common femoral arteries with suspected 70 percent stenosis in the right and 30 percent in the left.There is normal enhancement of the proximal superficial femoral arteriesBone windows no evidence of aggressive bone lesions there is degenerative disc disease at L5-S1.IMPRESSIONNo evidence of focal stenosis or thrombus in the right brachiocephalic trunk, right subclavian and proximal right brachial artery. Limited evaluation of the mid brachial artery, forearm and hand arteries probably due to a slow flow and lack of enhancementNo dominant calcification of the vessels.Lung fibrosis. Calcified fibroid.Suspected 70 percent stenosis of the superior right common femoral artery with heavy calcification.Electronically signed by: Grisel Barton (Aug 19, 2022 09:18:25)
[2022-08-19] MEDS: ZOSYN VIAL 3.375 GRAMS 3.375 G in NS 100 ML IV 100 ML IV SCH ×2 (15:29→21:33)
--- NOTE | 2022-08-19 18:14 | VAS ---
LOWER EXT ARTERIALHISTORY: LOWER EXT REST PAINComparison:NoneTechnique: Multiple jimenez scale and color flow Doppler images of the right and left lower extremity arterial system were obtained. Interrogation of the common femoral artery, superficial femoral artery, popliteal artery, and tibial arteries was performed.Findings:Right extremity:Common femoral : 33 cm/sSuperficial femoral proximal: 61 cm/sSuperficial femoral mid: 53 cm/sSuperficial femoral distal : 44 cm/sPopliteal : 46 cm/sPosterior tibial : 64 cm/sAnterior tibial /dorsalis pedis: 88 cm/sLeft extremity:Common femoral : 51 cm/sSuperficial femoral proximal: 47 cm/sSuperficial femoral mid: 58 cm/sSuperficial femoral distal :47 cm/sPopliteal : 57 cm/sPosterior tibial : 53 cm/sAnterior tibial /dorsalis pedis: 32 cm/sIMPRESSION:1.No significantly elevated velocities to suggest hemodynamically significant stenosis of the right and left lower extremity arterial system.[email or web address].ncbi.nlm.nih.gov/pubmed/[email or web address] ronically signed by: MOHSEN ULRICH (Aug 19, 2022 18:12:44)
--- NOTE | 2022-08-20 00:27 | NOTE.SOAP ---
Soap Note Note for Day of Date of Exam: 08/19/22 Subjective Data Subjective Data: Hands not hurting as much.No tobacco. Has not started antibiotics.Is on Plavix. C/o right leg short distance claudication and early rest pain. CTA of right arm shows no major obstruction of the major arteries of the aortic arch and right arm vessels. Distal vessels with inflammation. > 70% stenosis of the right common femoral artery. Objective Data Temperature: 98.4 F Pulse Rate: 69 Respiratory Rate: 18 Blood Pressure: 116/71 O2 Sat by Pulse Oximetry: 97 Objective Data: Hands unchanged, Assessment Assessment: Buerger's disease, Right leg rest pain. Plan Plan: Begin Zosyn, obtain LE arterial dopplers
[2022-08-20] MEDS: LR 1,000 ML IV 1,000 ML IV SCH ×3 (02:29→23:33)
[2022-08-20] MEDS: DILAUDID INJ IVP PRN ×7 (02:29→23:29)
[2022-08-20] MEDS: ZOSYN VIAL 3.375 GRAMS 3.375 G in NS 100 ML IV 100 ML IV SCH ×3 (05:13→21:00)
[2022-08-20 05:39] LABS: BASOPHILS # (AUTO) 0.1 X10^3/uL (0.0-0.1); BASOPHILS % (AUTO) 0.9 % (0.2-1.0); EOSINOPHILS # (AUTO) 0.1 x10^3/uL (0.0-0.2); EOSINOPHILS % (AUTO) 2.1 % (0.9-2.9); HEMATOCRIT 36.1 % (36.0-47.0); HEMOGLOBIN 12.3 g/dL (12.0-16.0); LYMPHOCYTES # (AUTO) 1.2 X10^3/uL (1.3-2.9); LYMPHOCYTES % (AUTO) 17.4 % (21.0-51.0); MEAN CORPUSCULAR HEMOGLOBIN 30.8 pg (27.0-34.0); MEAN CORPUSCULAR VOLUME 90.6 fL (80.0-100.0); MEAN PLATELET VOLUME 8.6 fL (7.4-11.0); MONOCYTES # (AUTO) 0.7 x10^3/uL (0.3-0.8); MONOCYTES % (AUTO) 10.3 % (0.0-13.0); NEUTROPHILS # (AUTO) 4.9 x10^3/uL (2.2-4.8); NEUTROPHILS % (AUTO) 69.3 % (42.0-75.0); PLATELET COUNT 317 X10^3/uL (150.0-450.0); RED BLOOD COUNT 3.98 X10^6/uL (3.5-5.4); RED CELL DISTRIBUTION WIDTH 13.4 % (11.6-16.5); WHITE BLOOD COUNT 7.1 X10^3/uL (3.6-10.0)
[2022-08-20 05:53] LABS: ALANINE AMINOTRANSFERASE 9 Units/L (12-78); ALBUMIN 1.9 g/dL (3.4-5.0); ALKALINE PHOSPHATASE 68 Units/L (46-116); ASPARTATE AMINO TRANSFERASE 18 Units/L (15-37); BLOOD UREA NITROGEN 11 mg/dL (7-18); CALCIUM 8.4 mg/dL (8.5-10.1); CARBON DIOXIDE 30.9 mmol/L (21-32); CHLORIDE 97 mmol/L (98-107); COR CA(FOR HYPOALB) 10.1 mg/dL (8.5-10.1); CREATININE 0.83 mg/dL (0.55-1.02); GLUCOSE 83 mg/dL (65-99); MAGNESIUM 1.7 mg/dL (2.0-2.9); POTASSIUM 4.1 mmol/L (3.5-5.1); SODIUM 133 mmol/L (136-145); TOTAL PROTEIN 6.6 g/dL (6.4-8.2); eGFR NON BLACK RACES > 60 (>60)
[2022-08-20] MEDS ORDERED: TOPROL XL PO ONE (08:15)
[2022-08-20] MEDS: NICOTINE PATCH TD SCH (08:39)
[2022-08-20] MEDS: PLAVIX PO SCH (08:39)
[2022-08-20] MEDS: CHLORTHALIDONE PO SCH (08:39)
[2022-08-20] MEDS: LOVENOX INJ 40 MG SYR SC SCH (08:40)
[2022-08-20] MEDS: NORVASC TAB 10 MG PO SCH (08:40)
[2022-08-20] MEDS: TOPROL XL PO SCH (08:40)
[2022-08-20] MEDS: MAGNESIUM SULFATE 1 GRAM/100 mL PREMIX 1 G/100 ML BAG IV PRN ×2 (11:17→13:18)
--- NOTE | 2022-08-20 22:31 | NOTE.SOAP ---
Soap Note Note for Day of Date of Exam: 08/20/22 Subjective Data Subjective Data: Still c/o pain both hands . Buerger's disease. C/O significant very short distance claudication U/S read as normal but femoral velocity is decreased . CTA show 70 % stenosis right common femoral artery. Objective Data Temperature: 98.7 F Pulse Rate: 70 Respiratory Rate: 20 Blood Pressure: 125/80 O2 Sat by Pulse Oximetry: 100 Objective Data: Hnads unchanged. No palpable pulse right ankle. Assessment Assessment: 1) Buerger's disease 2) Right leg short distance claudication. Plan Plan: Tobacco cessation, Plavix, IV antibiotics, plan on table arteriogram possible atherectomy and possible drug coated balloon angioplasty right common femoral artery vs endarterectomy and patch angioplasty.
[2022-08-21] MEDS: LR 1,000 ML IV 1,000 ML IV SCH ×2 (02:25→17:11)
[2022-08-21] MEDS: DILAUDID INJ IVP PRN ×7 (02:25→22:54)
[2022-08-21] MEDS: ZOSYN VIAL 3.375 GRAMS 3.375 G in NS 100 ML IV 100 ML IV SCH ×3 (05:12→21:54)
[2022-08-21 06:32] LABS: BASOPHILS # (AUTO) 0.1 X10^3/uL (0.0-0.1); BASOPHILS % (AUTO) 0.8 % (0.2-1.0); EOSINOPHILS # (AUTO) 0.2 x10^3/uL (0.0-0.2); EOSINOPHILS % (AUTO) 2.3 % (0.9-2.9); HEMATOCRIT 34.8 % (36.0-47.0); HEMOGLOBIN 11.6 g/dL (12.0-16.0); LYMPHOCYTES # (AUTO) 1.6 X10^3/uL (1.3-2.9); LYMPHOCYTES % (AUTO) 22.8 % (21.0-51.0); MEAN CORPUSCULAR HEMOGLOBIN 30.3 pg (27.0-34.0); MEAN CORPUSCULAR HGB CONC 33.3 g/dL (33.0-35.0); MEAN PLATELET VOLUME 8.4 fL (7.4-11.0); MONOCYTES # (AUTO) 0.8 x10^3/uL (0.3-0.8); MONOCYTES % (AUTO) 11.9 % (0.0-13.0); NEUTROPHILS # (AUTO) 4.3 x10^3/uL (2.2-4.8); NEUTROPHILS % (AUTO) 62.2 % (42.0-75.0); PLATELET COUNT 340 X10^3/uL (150.0-450.0); RED BLOOD COUNT 3.83 X10^6/uL (3.5-5.4); RED CELL DISTRIBUTION WIDTH 13.4 % (11.6-16.5)
[2022-08-21 06:40] LABS: ALANINE AMINOTRANSFERASE 8 Units/L (12-78); ALBUMIN 1.8 g/dL (3.4-5.0); ALKALINE PHOSPHATASE 63 Units/L (46-116); ASPARTATE AMINO TRANSFERASE 18 Units/L (15-37); BLOOD UREA NITROGEN 9 mg/dL (7-18); CALCIUM 8.1 mg/dL (8.5-10.1); CARBON DIOXIDE 30.3 mmol/L (21-32); CHLORIDE 98 mmol/L (98-107); COR CA(FOR HYPOALB) 9.9 mg/dL (8.5-10.1); CREATININE 0.86 mg/dL (0.55-1.02); GLUCOSE 80 mg/dL (65-99); POTASSIUM 4.1 mmol/L (3.5-5.1); SODIUM 134 mmol/L (136-145); TOTAL PROTEIN 6.5 g/dL (6.4-8.2); eGFR NON BLACK RACES > 60 (>60)
[2022-08-21] MEDS ORDERED: TOPROL XL PO ONE (08:25)
[2022-08-21] MEDS: CHLORTHALIDONE PO SCH (09:17)
[2022-08-21] MEDS: PLAVIX PO SCH (09:17)
[2022-08-21] MEDS: TOPROL XL PO SCH (09:18)
[2022-08-21] MEDS: NORVASC TAB 10 MG PO SCH (09:18)
[2022-08-21] MEDS: LOVENOX INJ 40 MG SYR SC SCH (09:19)
[2022-08-21] MEDS: NICOTINE PATCH TD SCH (09:19)
[2022-08-21] MEDS: PERCOCET TAB 5/325 MG PO PRN (20:15)
--- NOTE | 2022-08-21 23:24 | NOTE.SOAP ---
Soap Note Note for Day of Date of Exam: 08/21/22 Subjective Data Subjective Data: Still with pain in hands otherwise unchanged. Right leg short distance claudication. Objective Data Temperature: 98.5 F Pulse Rate: 68 Respiratory Rate: 22 Blood Pressure: 114/75 O2 Sat by Pulse Oximetry: 98 Objective Data: No changes hands . Monophasic flow right ankle. Assessment Assessment: Buerger's disease , continue tobacco cessation, pain control, IV antibiotics. Critical ischemia right leg. Plan for arteriogram possible atherectomy, possible angioplasty, possible stenting arteries right leg.
[2022-08-22] MEDS: DILAUDID INJ IVP PRN ×5 (04:07→22:54)
[2022-08-22] MEDS: LR 1,000 ML IV 1,000 ML IV SCH ×2 (05:38→18:13)
[2022-08-22] MEDS: ZOSYN VIAL 3.375 GRAMS 3.375 G in NS 100 ML IV 100 ML IV SCH ×3 (05:39→21:13)
[2022-08-22 06:32] LABS: BASOPHILS # (AUTO) 0.1 X10^3/uL (0.0-0.1); EOSINOPHILS # (AUTO) 0.2 x10^3/uL (0.0-0.2); EOSINOPHILS % (AUTO) 2.2 % (0.9-2.9); HEMATOCRIT 35.8 % (36.0-47.0); HEMOGLOBIN 11.9 g/dL (12.0-16.0); LYMPHOCYTES # (AUTO) 1.6 X10^3/uL (1.3-2.9); LYMPHOCYTES % (AUTO) 22.3 % (21.0-51.0); MEAN CORPUSCULAR HEMOGLOBIN 30.4 pg (27.0-34.0); MEAN CORPUSCULAR HGB CONC 33.2 g/dL (33.0-35.0); MEAN CORPUSCULAR VOLUME 91.6 fL (80.0-100.0); MEAN PLATELET VOLUME 8.4 fL (7.4-11.0); MONOCYTES % (AUTO) 13.5 % (0.0-13.0); NEUTROPHILS # (AUTO) 4.5 x10^3/uL (2.2-4.8); PLATELET COUNT 368 X10^3/uL (150.0-450.0); RED BLOOD COUNT 3.91 X10^6/uL (3.5-5.4); RED CELL DISTRIBUTION WIDTH 13.7 % (11.6-16.5); WHITE BLOOD COUNT 7.4 X10^3/uL (3.6-10.0)
[2022-08-22 06:49] LABS: ALANINE AMINOTRANSFERASE 9 Units/L (12-78); ALBUMIN 1.9 g/dL (3.4-5.0); ALKALINE PHOSPHATASE 63 Units/L (46-116); ASPARTATE AMINO TRANSFERASE 18 Units/L (15-37); BLOOD UREA NITROGEN 8 mg/dL (7-18); CALCIUM 8.3 mg/dL (8.5-10.1); CARBON DIOXIDE 28.3 mmol/L (21-32); CHLORIDE 99 mmol/L (98-107); CREATININE 0.87 mg/dL (0.55-1.02); GLUCOSE 81 mg/dL (65-99); POTASSIUM 4.2 mmol/L (3.5-5.1); SODIUM 135 mmol/L (136-145); TOTAL PROTEIN 6.7 g/dL (6.4-8.2); eGFR NON BLACK RACES > 60 (>60)
[2022-08-22] MEDS: NICOTINE PATCH TD SCH (08:12)
[2022-08-22] MEDS ORDERED: VERSED ONE (10:09)
[2022-08-22] MEDS ORDERED: FENTANYL VIAL INJ 100 mcg ONE (10:09)
[2022-08-22] MEDS ORDERED: DIPRIVAN VIAL 20 ML ONE (10:12)
[2022-08-22] MEDS ORDERED: NS 1,000 ML IV 1,000 ML ONE (10:34)
[2022-08-22] MEDS ORDERED: NS 100 ML IV 100 ML ONE (10:34)
[2022-08-22] MEDS ORDERED: ANCEF VIAL 1 GRAM ONE (10:34)
[2022-08-22] MEDS ORDERED: MARCAINE/EPINEPHRINE ONE (10:43)
[2022-08-22] MEDS ORDERED: HEPARIN SODIUM IN D5W 75,000 UNITS/1,500 ML BAG ONE (10:43)
[2022-08-22] MEDS ORDERED: KETAMINE HCL ONE (11:00)
[2022-08-22] MEDS ORDERED: HEPARIN SODIUM INJ 5000 UNITS ONE (11:15)
[2022-08-22] MEDS ORDERED: PROTAMINE SULFATE 50 MG VIAL ONE (11:15)
[2022-08-22] MEDS ORDERED: NS 500 ML IV 500 ML IV ONE (11:47)
[2022-08-22] MEDS: LOVENOX INJ 40 MG SYR SC SCH (12:20)
[2022-08-22] MEDS: PLAVIX PO SCH (12:27)
[2022-08-22] MEDS ORDERED: TOPROL XL PO ONE (12:34)
--- NOTE | 2022-08-22 12:36 | OR.IMMED ---
IMMEDIATE POST-OP NOTE Immediate Post-Op Note Pre-Op Diagnosis: critical ischemia right leg Post-Op Diagnosis: same Procedure: diagnostic aortogram, diagnostic arteriogram right leg, IVUS right common and superficial femoral arteries, IVUS right femoral artery Description of Procedure: see operative summary Surgeon/Caramel Cutter Machine: [place] Findings: 76 % stenosis of junction right common and right superficial femoral arteries decreased to 23 % post angioplasty Estimated Blood Loss: 100cc Complications: none Progress Notes: to floor, continue treatment for Buerger's disease, begin aspirin and Xarelto
[2022-08-22] MEDS: CHLORTHALIDONE PO SCH (12:45)
[2022-08-22] MEDS: NORVASC TAB 10 MG PO SCH (12:45)
[2022-08-22] MEDS: TOPROL XL PO SCH (12:46)
[2022-08-22] MEDS: PERCOCET TAB 5/325 MG PO PRN ×2 (12:49→18:15)
[2022-08-22] MEDS: XARELTO PO SCH (20:40)
[2022-08-23] MEDS: LR 1,000 ML IV 1,000 ML IV SCH ×2 (03:01→09:48)
[2022-08-23] MEDS: PERCOCET TAB 5/325 MG PO PRN ×2 (03:01→09:47)
[2022-08-23] MEDS: ZOSYN VIAL 3.375 GRAMS 3.375 G in NS 100 ML IV 100 ML IV SCH (05:05)
[2022-08-23] MEDS: DILAUDID INJ IVP PRN ×2 (05:55→12:54)
[2022-08-23 06:40] LABS: PREALBUMIN 10.1 mg/dL (18-35.7)
[2022-08-23 06:44] LABS: BASOPHILS # (AUTO) 0.1 X10^3/uL (0.0-0.1); BASOPHILS % (AUTO) 0.7 % (0.2-1.0); EOSINOPHILS # (AUTO) 0.2 x10^3/uL (0.0-0.2); EOSINOPHILS % (AUTO) 1.4 % (0.9-2.9); HEMATOCRIT 34.7 % (36.0-47.0); HEMOGLOBIN 11.6 g/dL (12.0-16.0); LYMPHOCYTES # (AUTO) 1.3 X10^3/uL (1.3-2.9); LYMPHOCYTES % (AUTO) 11.1 % (21.0-51.0); MEAN CORPUSCULAR HEMOGLOBIN 30.6 pg (27.0-34.0); MEAN CORPUSCULAR HGB CONC 33.6 g/dL (33.0-35.0); MEAN CORPUSCULAR VOLUME 91.2 fL (80.0-100.0); MEAN PLATELET VOLUME 8.2 fL (7.4-11.0); MONOCYTES # (AUTO) 1.4 x10^3/uL (0.3-0.8); MONOCYTES % (AUTO) 11.9 % (0.0-13.0); NEUTROPHILS # (AUTO) 8.8 x10^3/uL (2.2-4.8); NEUTROPHILS % (AUTO) 74.9 % (42.0-75.0); PLATELET COUNT 350 X10^3/uL (150.0-450.0); RED CELL DISTRIBUTION WIDTH 13.4 % (11.6-16.5); WHITE BLOOD COUNT 11.8 X10^3/uL (3.6-10.0)
[2022-08-23 06:58] LABS: ALANINE AMINOTRANSFERASE 6 Units/L (12-78); ALBUMIN 1.9 g/dL (3.4-5.0); ALKALINE PHOSPHATASE 68 Units/L (46-116); ASPARTATE AMINO TRANSFERASE 25 Units/L (15-37); BLOOD UREA NITROGEN 7 mg/dL (7-18); CALCIUM 8.3 mg/dL (8.5-10.1); CHLORIDE 98 mmol/L (98-107); CREATININE 0.86 mg/dL (0.55-1.02); GLUCOSE 90 mg/dL (65-99); POTASSIUM 3.9 mmol/L (3.5-5.1); SODIUM 133 mmol/L (136-145); TOTAL PROTEIN 6.9 g/dL (6.4-8.2); eGFR NON BLACK RACES > 60 (>60)
[2022-08-23] MEDS ORDERED: ASPIRIN EC 81 MG PO SCH (09:00)
[2022-08-23] MEDS ORDERED: TOPROL XL PO ONE (09:09)
[2022-08-23] MEDS: XARELTO PO SCH (09:47)
[2022-08-23] MEDS: NICOTINE PATCH TD SCH (09:47)
[2022-08-23] MEDS: TOPROL XL PO SCH (09:48)
[2022-08-23] MEDS: NORVASC TAB 10 MG PO SCH (09:48)
[2022-08-23] MEDS: CHLORTHALIDONE PO SCH (09:48)
[2022-08-23] MEDS: PLAVIX PO SCH (09:48)
[2022-08-23 12:05] VITALS: BP 105/72; PULSE 64; TEMP 98.7; O2SAT 100
--- NOTE | 2022-08-23 12:44 | W.DIS.FURT ---
Summary of Discharge Discharge Summary of Date Date of Exam: 08/23/22 Admission Date Date of Admission: 08/17/22 Admission Diagnosis Hospital Course: 57 yo old female was diagnosed with Buerger's disease and significant and tobacco abuse. She was discharged home after admission for pain control but continued to smoke cigarettes. She presented with draining wounds from the tips of the index finger,long finger, ring finger and small finger of the right hand and the thumb of the left hand. She was admitted and placed on IV antibiotics and Plavix. CT angiogram consistent with Buerger's disease with no proximal upper extremity arterial disease . CTA showed > 70 % stenosis of the right common femoral artery and she complained of significant rest pain/ severe short distance claudication of the right leg . On August 22, 2022 this was confirmed with intravascular ultrasound and treated with atherectomy and drug coated balloon angioplsty with reduction from 76% to 23%. Right leg is doing well. She still complains of pain of the hands. She will be discharged home on po clindamycin, 150 mg QID as well as Xarelto 2.5 mg BID and aspirin 81 mg daily .I will see her in one week in follow up. I have encouraged her not to smoke as she risks losing the fingers of all her hands. Vital Signs: Vital Signs (72 hours) 08/21/22 23:24 08/20/22 22:28 08/20/22 11:25 Temperature 98.5 F 98.7 F Pulse Rate 68 70 Pulse Rate [Left Radial] Respiratory Rate 22 20 18 Blood Pressure 114/75 125/80 Blood Pressure [Left Arm] Blood Pressure [Right Arm] O2 Sat by Pulse Oximetry 98 100 Oxygen Delivery Method 08/20/22 15:21 08/20/22 12:00 08/20/22 11:55 Temperature 98.7 F Pulse Rate Pulse Rate [Left Radial] 70 Respiratory Rate 20 20 18 Blood Pressure Blood Pressure [Left Arm] Blood Pressure [Right Arm] 106/72 O2 Sat by Pulse Oximetry 100 Oxygen Delivery Method Room Air 08/20/22 15:51 08/20/22 16:00 08/20/22 21:00 Temperature 98.7 F Pulse Rate Pulse Rate [Left Radial] 70 Respiratory Rate 20 20 20 Blood Pressure Blood Pressure [Left Arm] Blood Pressure [Right Arm] 125/80 O2 Sat by Pulse Oximetry 100 Oxygen Delivery Method Room Air 08/20/22 19:00 08/20/22 20:00 08/20/22 21:30 Temperature 98.8 F Pulse Rate Pulse Rate [Left Radial] 62 Respiratory Rate 18 20 Blood Pressure Blood Pressure [Left Arm] 108/70 Blood Pressure [Right Arm] O2 Sat by Pulse Oximetry 100 Oxygen Delivery Method Room Air 08/20/22 23:29 08/20/22 23:58 08/21/22 00:00 Temperature 98.6 F Pulse Rate Pulse Rate [Left Radial] 73 Respiratory Rate 20 20 20 Blood Pressure Blood Pressure [Left Arm] 121/75 Blood Pressure [Right Arm] O2 Sat by Pulse Oximetry 100 Oxygen Delivery Method 08/21/22 02:25 08/21/22 05:14 08/21/22 02:55 Temperature Pulse Rate Pulse Rate [Left Radial] Respiratory Rate 20 18 20 Blood Pressure Blood Pressure [Left Arm] Blood Pressure [Right Arm] O2 Sat by Pulse Oximetry s of Oxygen Delivery Method 08/21/22 04:00 08/21/22 05:44 08/21/22 07:00 Temperature 97.6 F Pulse Rate Pulse Rate [Left Radial] 64 Respiratory Rate 18 18 Blood Pressure Blood Pressure [Left Arm] 114/72 Blood Pressure [Right Arm] O2 Sat by Pulse Oximetry 99 Oxygen Delivery Method Room Air 08/21/22 12:40 08/21/22 09:36 08/21/22 08:00 Temperature 98.9 F Pulse Rate Pulse Rate [Left Radial] 65 Respiratory Rate 20 16 16 Blood Pressure Blood Pressure [Left Arm] Blood Pressure [Right Arm] 116/69 O2 Sat by Pulse Oximetry 100 Oxygen Delivery Method Room Air 08/21/22 12:00 08/21/22 13:10 08/21/22 10:06 Temperature Pulse Rate Pulse Rate [Left Radial] 67 Respiratory Rate 20 20 16 Blood Pressure Blood Pressure [Left Arm] Blood Pressure [Right Arm] 116/71 O2 Sat by Pulse Oximetry 96 Oxygen Delivery Method Room Air 08/21/22 16:00 08/21/22 18:15 08/21/22 18:57 Temperature 98.2 F Pulse Rate Pulse Rate [Left Radial] 68 Respiratory Rate 20 20 Blood Pressure Blood Pressure [Left Arm] Blood Pressure [Right Arm] 123/77 O2 Sat by Pulse Oximetry 100 Oxygen Delivery Method Room Air Room Air 08/21/22 18:45 08/21/22 20:15 08/21/22 20:27 Temperature Pulse Rate Pulse Rate [Left Radial] Respiratory Rate 20 22 20 Blood Pressure Blood Pressure [Left Arm] Blood Pressure [Right Arm] O2 Sat by Pulse Oximetry Oxygen Delivery Method 08/21/22 20:00 08/21/22 20:57 08/21/22 21:15 Temperature 98.5 F Pulse Rate Pulse Rate [Left Radial] 65 Respiratory Rate 22 20 20 Blood Pressure Blood Pressure [Left Arm] 114/75 Blood Pressure [Right Arm] O2 Sat by Pulse Oximetry 98 Oxygen Delivery Method 08/21/22 22:54 08/21/22 23:24 08/21/22 23:36 Temperature 98.5 F Pulse Rate Pulse Rate [Left Radial] 66 Respiratory Rate 20 20 20 Blood Pressure Blood Pressure [Left Arm] 118/87 Blood Pressure [Right Arm] O2 Sat by Pulse Oximetry 99 Oxygen Delivery Method Room Air 08/22/22 04:07 08/22/22 04:00 08/22/22 04:37 Temperature 98.2 F Pulse Rate Pulse Rate [Left Radial] 62 Respiratory Rate 20 18 20 Blood Pressure Blood Pressure [Left Arm] 119/69 Blood Pressure [Right Arm] O2 Sat by Pulse Oximetry 100 Oxygen Delivery Method Room Air 08/22/22 08:16 08/22/22 08:19 08/22/22 10:17 Temperature Pulse Rate Pulse Rate [Left Radial] Respiratory Rate 20 20 Blood Pressure Blood Pressure [Left Arm] Blood Pressure [Right Arm] O2 Sat by Pulse Oximetry Oxygen Delivery Method Room Air 08/22/22 10:18 08/22/22 10:40 08/22/22 08:00 Temperature 98.2 F 98.3 F Pulse Rate 67 Pulse Rate [Left Radial] 65 Respiratory Rate 20 18 20 Blood Pressure 133/71 Blood Pressure [Left Arm] 133/69 Blood Pressure [Right Arm] O2 Sat by Pulse Oximetry 96 100 Oxygen Delivery Method Room Air Room Air 08/22/22 12:49 08/22/22 13:52 08/22/22 15:30 Temperature Pulse Rate Pulse Rate [Left Radial] Respiratory Rate 18 18 18 Blood Pressure Blood Pressure [Left Arm] Blood Pressure [Right Arm] O2 Sat by Pulse Oximetry Oxygen Delivery Method 08/22/22 16:10 08/22/22 18:15 08/22/22 12:20 Temperature 97.0 F L Pulse Rate Pulse Rate [Left Radial] 56 L Respiratory Rate 18 18 18 Blood Pressure Blood Pressure [Left Arm] Blood Pressure [Right Arm] 154/96 O2 Sat by Pulse Oximetry 100 Oxygen Delivery Method 08/22/22 12:35 08/22/22 19:00 08/22/22 12:50 Temperature 97.1 F L 97.4 F L Pulse Rate Pulse Rate [Left Radial] 67 72 Respiratory Rate 24 20 Blood Pressure Blood Pressure [Left Arm] Blood Pressure [Right Arm] 203/118 O2 Sat by Pulse Oximetry 96 98 Oxygen Delivery Method Room Air 08/22/22 13:05 08/22/22 13:20 08/22/22 14:20 Temperature 97.4 F L 97.4 F L 98.0 F Pulse Rate Pulse Rate [Left Radial] 70 72 70 Respiratory Rate 20 20 18 Blood Pressure Blood Pressure [Left Arm] Blood Pressure [Right Arm] 163/97 165/101 124/81 O2 Sat by Pulse Oximetry 98 100 100 Oxygen Delivery Method 08/22/22 15:20 08/22/22 16:20 08/22/22 17:20 Temperature 98.0 F 98 F 98.0 F Pulse Rate Pulse Rate [Left Radial] 70 68 67 Respiratory Rate 18 18 18 Blood Pressure Blood Pressure [Left Arm] Blood Pressure [Right Arm] 134/88 95/61 102/68 O2 Sat by Pulse Oximetry 100 100 100 Oxygen Delivery Method 08/22/22 19:15 08/22/22 20:50 08/22/22 20:00 Temperature 98.1 F Pulse Rate Pulse Rate [Left Radial] 65 Respiratory Rate 18 18 Blood Pressure Blood Pressure [Left Arm] 108/72 Blood Pressure [Right Arm] O2 Sat by Pulse Oximetry 100 Oxygen Delivery Method Room Air Room Air 08/22/22 22:54 08/22/22 23:24 08/22/22 23:47 Temperature 98.3 F Pulse Rate Pulse Rate [Left Radial] 68 Respiratory Rate 18 18 18 Blood Pressure Blood Pressure [Left Arm] 111/72 Blood Pressure [Right Arm] O2 Sat by Pulse Oximetry 100 Oxygen Delivery Method Room Air 08/23/22 04:00 08/23/22 03:01 08/23/22 04:00 Temperature 98 F Pulse Rate Pulse Rate [Left Radial] 64 Respiratory Rate 18 18 18 Blood Pressure Blood Pressure [Left Arm] 102/68 Blood Pressure [Right Arm] O2 Sat by Pulse Oximetry 100 Oxygen Delivery Method Room Air 08/23/22 05:55 08/23/22 06:25 08/23/22 09:47 Temperature Pulse Rate Pulse Rate [Left Radial] Respiratory Rate 18 18 18 Blood Pressure Blood Pressure [Left Arm] Blood Pressure [Right Arm] O2 Sat by Pulse Oximetry Oxygen Delivery Method Labs: Laboratory Last Values WBC 11.8 X10^3/uL (3.6-10.0) H 08/23/22 06:02 RBC 3.80 X10^6/uL (3.5-5.4) 08/23/22 06:02 Hgb 11.6 g/dL (12.0-16.0) L 08/23/22 06:02 Hct 34.7 % (36.0-47.0) L 08/23/22 06:02 MCV 91.2 fL (80.0-100.0) 08/23/22 06:02 MCH 30.6 pg (27.0-34.0) 08/23/22 06:02 MCHC 33.6 g/dL (33.0-35.0) 08/23/22 06:02 RDW 13.4 % (11.6-16.5) 08/23/22 06:02 Plt Count 350 X10^3/uL (150.0-450.0) 08/23/22 06:02 MPV 8.2 fL (7.4-11.0) 08/23/22 06:02 Neut % (Auto) 74.9 % (42.0-75.0) 08/23/22 06:02 Lymph % (Auto) 11.1 % (21.0-51.0) L 08/23/22 06:02 Geary % (Auto) 11.9 % (0.0-13.0) 08/23/22 06:02 Eos % (Auto) 1.4 % (0.9-2.9) 08/23/22 06:02 Baso % (Auto) 0.7 % (0.2-1.0) 08/23/22 06:02 Neut # (Auto) 8.8 x10^3/uL (2.2-4.8) H 08/23/22 06:02 Lymph # (Auto) 1.3 X10^3/uL (1.3-2.9) 08/23/22 06:02 Geary # (Auto) 1.4 x10^3/uL (0.3-0.8) H 08/23/22 06:02 Eos # (Auto) 0.2 x10^3/uL (0.0-0.2) 08/23/22 06:02 Baso # (Auto) 0.1 X10^3/uL (0.0-0.1) 08/23/22 06:02 Absolute Nucleated RBC 0.0 /100WBC 08/23/22 06:02 Sodium 133 mmol/L (136-145) L 08/23/22 06:02 Corrected Sodium TNP 08/23/22 06:02 Potassium 3.9 mmol/L (3.5-5.1) 08/23/22 06:02 Chloride 98 mmol/L (98-107) 08/23/22 06:02 Carbon Dioxide 25.0 mmol/L (21-32) 08/23/22 06:02 BUN 7 mg/dL (7-18) 08/23/22 06:02 Creatinine 0.86 mg/dL (0.55-1.02) 08/23/22 06:02 Est GFR (MDRD) Af Amer > 60 (>60) 08/23/22 06:02 Est GFR (MDRD) Non-Af > 60 (>60) 08/23/22 06:02 Glucose 90 mg/dL (65-99) 08/23/22 06:02 Hemoglobin A1c 5.0 % 08/18/22 05:09 Calcium 8.3 mg/dL (8.5-10.1) L 08/23/22 06:02 Corrected Calcium 10.0 mg/dL (8.5-10.1) 08/23/22 06:02 Magnesium 1.7 mg/dL (2.0-2.9) L 08/20/22 04:51 Total Bilirubin 0.50 mg/dL (0.2-1.0) 08/23/22 06:02 AST 25 Units/L (15-37) 08/23/22 06:02 ALT 6 Units/L (12-78) L 08/23/22 06:02 Alkaline Phosphatase 68 Units/L (46-116) 08/23/22 06:02 Total Protein 6.9 g/dL (6.4-8.2) 08/23/22 06:02 Albumin 1.9 g/dL (3.4-5.0) L 08/23/22 06:02 Globulin 5.0 g/dL (2.5-4.5) H 08/23/22 06:02 Albumin/Globulin Ratio 0.4 Ratio (1.1-2.1) L 08/23/22 06:02 Prealbumin 10.1 mg/dL (18-35.7) L 08/23/22 06:02 Reason For Visit: BUERGER'S DISEASE, INTRACTABLE PAIN Discharge Date Discharge Date: 08/23/22 Discharge Diagnosis All Active Problems (Updated 08/23/22 @ 10:43 by Brendan Matamoros) Critical limb ischemia of right lower extremity (Acute) Infected skin ulcer limited to breakdown of skin (Acute) Skin ulcer of finger (Acute) Ischemic ulcer of finger (Acute) Pain in finger of both hands (Acute) Nicotine addiction (Acute) Hypomagnesemia (Acute) Acute hyponatremia (Acute) Buerger's disease (Acute) Right elbow pain (Acute) Buerger disease (Acute) Pain in both hands (Acute) PVD (peripheral vascular disease) (Acute) Thromboangiitis obliterans (Buerger's disease) (Acute) Behcet's disease (Acute) Hyponatremia (Acute) Chest pain (Acute) Hypertension (Acute) UTI (urinary tract infection) (Acute) Buerger disease (Acute) Sprain of right shoulder (Acute) Chest wall pain (Acute) Helicobacter pylori gastritis (chronic gastritis) (Acute) Alcohol abuse (Acute) Subconjunctival hemorrhage (Acute) Hypertension (Acute) Gastroenteritis (Acute) Helicobacter pylori (H. pylori) infection (Acute) Nausea & vomiting (Acute) Abdominal pain (Acute) Arthralgia (Acute) Hypertension (Acute) Chest pain, non-cardiac (Acute) Alcohol intoxication (Acute) Arthritis (Acute) Insect bite of foot, left (Acute) Tendonitis of elbow, left (Acute) Head contusion (Acute) Degenerative arthritis of hand (Acute) Cyst in hand (Acute) Left breast mass (Acute) Abnormal finding on diagnostic imaging of right kidney (Acute) Pain of left calf (Acute) Acute hypokalemia (Acute) Acute hypokalemia (Acute) Acute dehydration (Acute) Periorbital edema (Acute) Allergic rhinitis (Acute) Acute hyponatremia (Acute) Acute hypokalemia (Acute) Cellulitis of left orbit (Acute) Pain of multiple extremities (Acute) Osteoarthritis of hands, bilateral (Acute) Herpes stomatitis (Acute) Stomatitis and mucositis (Acute) Intermittent pain and swelling of hand (Acute) Hypertension (Acute) Raynaud's disease (Acute) Electrolyte imbalance (Acute) Acute hyponatremia (Acute) Acute hypokalemia (Acute) Oral ulcer (Acute) Plan of Treatment: Continue with present treatment and follow up plan. Pt is to keep follow up appointment as instructed and take medications as ordered. Discharge Medications Discharge Medications: No Known Drug Allergies Allergy (Unknown, Verified 08/10/22 10:59) Percocet 5 mg , 1 po q 6hr PRN pain aspirin 81 mg po daily Xarelto 2.5 mg po BID clindamycin 150 mg po QID Discharge Disposition Assessment: see hospital course Discharge Disposition: home Discharge Condition: stable Discharge Plan Discharge Plan Hospital Course: 57 yo old female was diagnosed with Buerger's disease and significant and tobacco abuse. She was discharged home after admission for pain control but continued to smoke cigarettes. She presented with draining wounds from the tips of the index finger,long finger, ring finger and small finger of the right hand and the thumb of the left hand. She was admitted and placed on IV antibiotics and Plavix. CT angiogram consistent with Buerger's disease with no proximal upper extremity arterial disease . CTA showed > 70 % stenosis of the right common femoral artery and she complained of significant rest pain/ severe short distance claudication of the right leg . On August 22, 2022 this was confirmed with intravascular ultrasound and treated with atherectomy and drug coated balloon angioplsty with reduction from 76% to 23%. Right leg is doing well. She still complains of pain of the hands. She will be discharged home on po clindamycin, 150 mg QID as well as Xarelto 2.5 mg BID and aspirin 81 mg daily .I will see her in one week in follow up. I have encouraged her not to smoke as she risks losing the fingers of all her hands. Patient Disposition: 01 HOME, SELF-CARE Condition: Stable Health Concerns: Post Hospitalization: new medications and changes needed to prevent readmission or further decline. Pt educated and given instructions on all concerns. Care Plan Goals: Problem: Pain/Alteration in Comfort Goal: Improve/ Resolve Pain; Achieve Pain Tolerance Instructions: Take pain medications as prescribed. Contact your primary care provider if your pain is unrelieved or worsens. Follow up with primary care provider as directed. Plan of Treatment: Continue with present treatment and follow up plan. Pt is to keep follow up appointment as instructed and take medications as ordered. Assessment: see hospital course Prescription drug monitoring program results: PDMP reviewed with concerns identified Prescriptions: New clindamycin HCl 150 mg capsule 150 mg PO QID Qty: 40 0RF oxycodone-acetaminophen [Percocet] 5-325 mg tablet 1 tab PO Q6H MDD 4 PRNQty: 40 0RF Xarelto 2.5 mg tablet 2.5 mg PO BID Qty: 60 4RF Continued amlodipine 10 mg tablet 10 mg PO DAILY Qty: 90 3RF metoprolol succinate 200 mg tablet extended release 24 hr 200 mg PO DAILY Qty: 90 3RF chlorthalidone 25 mg tablet 25 mg PO QDAY Qty: 90 3RF nitroglycerin 2 % ointment 1 inch transdermal QDAY Qty: 60 5RF Rx Instructions: allow nitrate-free interval of approx. 10-12 hrs per 24-hour period. Applied to affected distal fingertips. nicotine [Nicoderm CQ] 21 mg/24 hr Patch 24 Hour 1 patch TRANSDERMAL Q24H Qty: 10 0RF Discontinued hydrocodone-acetaminophen 10-325 mg tablet 1 tab PO Q4H MDD 40 mg hydrocodone PRN (Reason: pain) 7 Days Qty: 42 0RF fentanyl 25 mcg/hr patch 72 hour 1 patch transdermal Q72H MDD 1 patch every 3 days. 15 Days Qty: 5 0RF sulfamethoxazole-trimethoprim [Bactrim DS] 800-160 mg tablet 1 tab PO Q12H 10 Days Qty: 20 0RF Rx Instructions: 08/10/22 #20 ciprofloxacin HCl 500 mg tablet 500 mg PO Q12H Qty: 20 0RF Rx Instructions: 08/10/22 #20 Follow ups/Referrals Follow ups/Referrals: Brendan Matamoros [STAFF PHYSICIAN] - 09/06/22 10:30 am Instructions Instructions: Managing the Challenge of Quitting Smoking, Atherosclerosis, Smokeless Tobacco Information, Adult, Hand Pain Stand Alone Forms: Excuse From Work or School
--- NOTE | 2022-08-24 17:00 | DR.OPNOTE ---
OP NOTE Pre-Op Diagnosis: critical ischemia right leg Post-Op Diagnosis: same Procedure Date Date Of Procedure: 08/24/22 Procedure: PROCEDURE: DIAGNOSTIC AORTOGRAM, DIAGNOSTIC ARTERIOGRAM RIGHT LEG, INTRAVASCULAR ULTRASOUND RIGHT FEMORAL ARTERY, ATHERECTOMY AND DRUG COATED BALLOON ANGIOPLASTY JUNCTION OF RIGHT COMMON AND SUPERFICIAL FEMORAL ARTERIES NARRATIVE : Patient was taken to the operative suite and placed in the supine position. The left groin and entire right leg were prepped and draped in sterile fashion. The patient was given intravenous sedation supervised by myself. Time out for the procedure obtained . Ultrasound used to identify the left common femoral artery and the skin over lying the artery infiltrated with 0.5% Marcaine .Ultrasound used to guide puncture of the left femoral artery and a 0.[address]. Incision made over the guide wire at the skin edge with a number 11 knife blade and then a micro sheath placed over the guide wire into the left femoral artery. Small wire exchanged for a 0.035 inch Advantage glide wire and the micro sheath exchanged for a 5 Fr vascular sheath . Omni catheter placed over the wire into the aorta and diagnostic aortogram performed showing a normal aorta and normal iliac arteries . Omni catheter used to steer the guide wire down the right iliac artery to the distal right external iliac artery. Omni catheter exchanged for a Greenwood catheter. Patient given 5000 units of IV heparin. Greenwood catheter and 0.035 inch wire were used to obtain sequential arteriograms of the right leg showing questionable area of concern at the junction of the right common femoral and superficial femoral arteries . 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 There was three vessel run off of the right leg . The gu tato wire was parked in the popliteal artery as selective catherization . The 0.035 inch wire was exchanged for a 0.014 inch wire . Over this wire we placed the intravascular probe and intravascular ultrasound carried out on the femoral artery showing 76% stenosis of the junction of the distal common femoral artery and superficial femoral artery . Ultrasound probe removed and over this wire we placed the Jet Stream device and performed atherectomy using two runs through the area in question , once with the blades down and once with with the blades up. This area then balloon dilated with a 7 mm by 100 mm of [employer] drug coated [place] balloon for three minutes . Post-procedure intravascular ultrasound repeated showing the area of stenosis now 23%. All wires and devices removed from the destination sheath . Destination sheath pulled back into the aorta and a 0.035 inch wire placed. Destination sheath exchange for Angioseal device used to close the puncture of the left femoral artery. Hemostatic dressing applied . Patient given 30 mg of intravenous protamine. Patient taking back to the ICU in stable condition. Type of Anesthesia: Local (0.5% Marcaine) Anesthesia Comment: plus MAC Findings: > 70 % stenosis of the right common femoral artery/ superficial femoral artery junction Type of Fluids Used:: Lactated Ringers Total Amount of Fluid Infused:: 700 cc Urine output: 700cc EBL: 100 cc Complications:: complications Needle/Sponge Count:: correct Disposition/Condition: Pt. tolerated procedure without difficulty. Taken back to the ICU iin stable condition.
== END 2022-08-23 13:15 | disposition home or self-care (01) | DRG 271 ==
LOC: MED/SURG → OBSVTOIN 17:38
PROVIDERS: ADMIT Surgery; ATTEND Surgery
DX: I10 Essential (primary) hypertension; E87.1 Hypo-osmolality and hyponatremia; Z72.0 Tobacco use; I73.1 Thromboangiitis obliterans [Buerger's disease]; E87.6 Hypokalemia; I70.221 Atherosclerosis of native arteries of extremities with rest pain, right leg